=== PATIENT | female | born 1975 | race Caucasian/White ===

== ENCOUNTER → 2020-02-04 11:42 | Outpatient (BNVA) | payer OTHER, MEDICARE, SELFPAY | PROVIDERS: Visit Provider Surgery | DX: Z76.89 Persons encountering health services in other specified circumstances (principal) ==

== ENCOUNTER 2020-02-16 07:59 | Outpatient (REF) | payer OTHER, SELFPAY ==
[2020-02-16 08:03] VITALS: BP 138/78; PULSE 82; RESP 16; TEMP 37.1; O2SAT 98
[2020-02-16 08:04] VITALS: BMI 42.2
[2020-02-16 08:47] VITALS: BP 143/88; PULSE 82; RESP 16; O2SAT 99
--- NOTE | 2020-02-16 08:52 | PM.OP ---
Brief Operative Note Date of Service: 02/16/20 Pre-op diagnosis: Pilar cysts x 4 Post-op diagnosis: same Procedure: Excision of pilar cysts x 4 Implants: none Surgeon: Farrukh Faith MD Anesthesia: local Estimated blood loss (mL): 1 Pathology: other (pilar cyst x 4) Condition: stable Disposition: other (home)
--- NOTE | 2020-02-16 08:53 | W.PM.OPN ---
Operative Note Operative Note Date of Service: 02/16/20 Narrative: Preoperative diagnosis: Pilar cyst times for Postoperative diagnosis: Same Procedure: Excision of Pilar cysts x4 Anesthesia: Local Surgeon: Farrukh Faith MD Director Construction Services: None Indications for procedure this is a 44-year-old female patient presenting with 4 Pilar cysts to located on the left parietal scalp in 2 located in the posterior /occipital scalp. All cyst measured approximately 1.5 cm in diameter. Operative findings patient was found to have for Pilar cyst as noted above each measuring 1.5 cm in diameter. Specimen: Pilar cyst x4 Complications: None Estimated blood loss: 1 mL Procedure details patient was placed in a prone position. After assuring informed consent and the site of surgery being confirmed by the patient patient's scalp was prepped with Betadine over each of the cysts. Local consisting of 1% lidocaine with epinephrine was then infiltrated over each of the cyst. Starting with the left 2 lesions incision was made directly over the cyst measuring approximately 1.5 cm. Incision was carried down through subcutaneous tissue up to the cyst wall. Blunt dissection with a mosquito hemostat was then used to dissect the cyst free from the surrounding subcutaneous tissue. Cyst was removed and sent to pathology for further examination. Skin was then closed using 2 interrupted 3-0 Prolene sutures. Bacitracin was applied. Attention was then directed to the posterior left parietal lesion. Again local was infiltrated over the cyst and incision made directly over the cyst. Blunt dissection was then used to dissect the lesion and the lesion was sent to pathology. The same procedure was used for the next 2 in the occipital region. All incisions were then closed using interrupted 3 O Prolene sutures. Bacitracin was applied to all 4 incisions. The patient tolerated the procedure well. She was discharged to home in stable condition.
== END 2020-02-16 08:00 | disposition home or self-care (01) ==
LOC: HO.MS 07:59
PROVIDERS: PCP Internal Medicine; Visit Provider Surgery
PROC: (CPT 11422; principal; 2020-02-16 08:00)
DX: L72.11 Pilar cyst (principal)
CPT/HCPCS: 11422 ×4; 88304

== ENCOUNTER → 2020-02-25 09:58 | Outpatient (BNVA) | payer OTHER, SELFPAY | PROVIDERS: PCP Nurse Practitioner Family; Visit Provider Surgery | DX: Z76.89 Persons encountering health services in other specified circumstances (principal) ==

== ENCOUNTER 2023-04-14 09:43 | Inpatient (IN) | payer OTHER, SELFPAY ==
[2023-04-14] VITALS (7 sets, daily range): BP systolic 108–160; BP diastolic 63–100; PULSE 91–126; RESP 14–26; TEMP 36.5–38.3; O2SAT 95–100; BMI 46.9; BMI 47.0
--- NOTE | ~2023-04-14 | CT_ITS ---
EXAMINATION: CT ABDOMEN AND PELVIS WITH CONTRAST CLINICAL INFORMATION: Right-sided abdominal pain COMPARISON: None available. TECHNIQUE: Multidetector volumetric images were obtained from the superior aspect of the liver through the pubic symphysis following administration 100 mL of Omnipaque 350 intravenous contrast. Sagittal and coronal reformatted images were obtained on the technologist's workstation. This CT examination was performed using dose optimization techniques as appropriate, variously including the following: *Automated exposure control *Adjustment of mA and/or kV according to patient size (this includes techniques or standardized protocols for targeted exams where dose is matched to indication/reason for exam; i.e. extremities or head) *Use of iterative reconstruction technique DLP: 985 mGy-cm FINDINGS: Visualized lung bases demonstrate mild dependent atelectasis. The liver is normal in size but demonstrates diffusely decreased attenuation. The gallbladder is normal in appearance. The pancreas, spleen and adrenal glands are unremarkable. Symmetrically enhancing kidneys. There is no hydronephrosis of either kidney. Normal caliber loops of small and large bowel. Normal appendix. Moderate sized umbilical hernia containing fat and omentum. A fascial defect measures approximately 2.2 x 2.6 cm in transverse by craniocaudal dimension. The hernia sac measures approximately 4.6 x 5.6 x 5.6 cm. Normal caliber abdominal aorta. No retroperitoneal lymphadenopathy. The bladder is normal in appearance. Suspected approximately 5 cm somewhat pedunculated fibroid off the uterine fundus. Small bilateral adnexal cysts. No gross free pelvic fluid. No inguinal lymphadenopathy. No acute osseous abnormality. CT/CT abdomen pelvis w IV con IMPRESSION: 1. Moderate sized umbilical hernia containing fat and omentum. 2. Diffusely decreased liver attenuation suggesting hepatic steatosis. Correlation with liver enzymes recommended. 3. Suspected approximately 5 cm somewhat pedunculated fibroid off the uterine fundus. Fleischner guidelines were followed.
--- NOTE | ~2023-04-14 | US_ITS ---
EXAMINATION: US ABDOMEN LIMITED CLINICAL INFORMATION: Pain. COMPARISON: CT scan same day earlier TECHNIQUE: Real-time imaging of the right upper quadrant abdominal viscera. FINDINGS: PANCREAS: The visualized portion of the pancreas head and body are normal, portion of the pancreatic body and tail, not visualized are obscured by bowel gas. LIVER: Increased echogenicity of the liver parenchyma, this can be seen in the setting of hepatic steatosis or liver parenchymal disease. Focal hypoechoic area probably focal fat sparing No intra or extrahepatic biliary dilatation. GALLBLADDER: Technologist reported tenderness pressing on the gallbladder. There are no other signs to suggest cholecystitis. The gallbladder is physiologically distended without evidence of stones, sludge, polyps, wall thickening or pericholecystic fluid. COMMON BILE DUCT: Normal in caliber measuring 0.3 cm in diameter. RIGHT KIDNEY: Normal. No hydronephrosis. No renal calculi or focal parenchymal lesions. The kidney measures 11.1 cm in maximum dimension. FREE FLUID: None. US/US abdomen limited IMPRESSION: 1. Technologist reported tenderness pressing on the gallbladder however there are no other signs to suggest cholecystitis. It was also reported that the Patient is tender all over the abdomen. 2. Increased echogenicity of the liver parenchyma, this can be seen in the setting of hepatic steatosis or liver parenchymal disease. 3. Hypoechoic area in the liver probably focal fat sparing.
--- NOTE | 2023-04-14 10:15 | ED_ITS ---
HPI - Abdominal Pain General Chief Complaint: Abdominal Pain Stated Complaint: back and abd pain Time Seen by Provider: 04/14/23 09:48 Source: patient Mode of arrival: ambulatory History of Present Illness HPI narrative: 47-year-old female without significant past medical history presents with severe worsening of right-sided abdominal pain, she states that for the past couple of weeks she has had pain that has occurred with each time that she is eaten and then since yesterday began becoming much worse with associated nausea, vomiting, chills and has a known umbilical hernia but denies any urinary symptoms. Related Data Home Medications Medication Instructions Recorded Confirmed ibuprofen 600 mg tablet 600 mg PO Q6H PRN 02/26/20 Allergies Allergy/AdvReac Type Severity Reaction Status Date / Time acetaminophen [Vicodin] Allergy Unknown nausea and Verified 04/14/23 10:23 vomiting hydrocodone [Vicodin] Allergy Unknown nausea and Verified 04/14/23 10:23 vomiting morphine [Morphine] Allergy Unknown NAUSEA, Verified 04/14/23 10:23 vomiting Environmental Allergy Unknown UNKNOWN Uncoded 04/14/23 10:23 From Vicodin Allergy Unknown NAUSEA Uncoded 04/14/23 10:23 Seasonal Allergies Allergy Unknown Unknown Uncoded 04/14/23 10:23 Review of Systems Review of Systems Pertinent positives and negatives as stated in HPI PMFSH Past Medical History Source: nursing notes reviewed Onset Date is defined in the Problem List Problems that require an onset date and time if occurred within 24 hrs of arrival to the ED Aortic Dissection and Rupture; Neurologic impairment; Cardiopulmonary Arrest; Endotracheal Intubation; Insertion or Replacement of Mechanical Circulatory Assist Device Medical History Obese General medical examination Scalp cyst Surgical History History of removal of cyst (~04/12/15) History of surgery on arm History of surgical removal of ganglion cyst Family History Family History Mother High blood pressure Stroke Father Sarcoid Cirrhosis of liver Social History Social History Smoked in Last 30 Days: No Use of substances other than those prescribed or required for medical reasons: No Advance Directives: No Advance Directives Information Provided: No Physical Exam ED Vital Signs: Vital Signs - 24 hr 04/14/23 10:00 04/14/23 11:25 04/14/23 11:35 Temperature 97.9 F Pulse Rate 126 H 99 98 Respiratory Rate 22 H 26 H 16 Blood Pressure 160/100 H 123/71 123/63 Pulse Oximetry 98 100 98 Oxygen Delivery Method Room Air Room Air Room Air 04/14/23 12:49 Temperature Pulse Rate 100 Respiratory Rate 14 Blood Pressure 116/68 Pulse Oximetry 97 Oxygen Delivery Method Room Air BMI result Body Mass Index 46.9 VITAL SIGNS: Reviewed. GENERAL: Elevated BMI, Well developed, well nourished, in no acute distress. HEAD: Normocephalic/atraumatic EYES: PERRLA, EOMI EARS: Ext canals without abnormality NOSE: Nares patent bilateral OROPHARYNX: no oral lesions noted, posterior pharynx clear NECK: Supple, no adenopathy LUNGS: Normal breath sounds. No adventitious sounds or accessory muscle use. SpO2<98> CARDIOVASCULAR: Tachycardic rate and rhythm without noted murmurs ABDOMEN: Soft, right upper quadrant/right lower quadrant pain, small fat containing ventral hernia with ability to somewhat reduce but there is no significant pain on manipulation, non-distended with bowel sounds. MUSCULOSKELETAL: No tenderness, deformities, or effusions noted on gross inspection. EXTREMITIES: No cyanosis, clubbing or edema. SKIN: Inspection of the skin reveals no rashes NEUROLOGIC: Alert and oriented x 4. Strength and sensation to light touch were grossly intact x 4. Medical Decision Making Medical Decision Making [facility] Narrative: 1010: 47-year-old female with history and clinical presentation, DDX: Cholecystitis, choledocholithiasis, pancreatitis/appendicitis felt to be less likely, doubt renal colic. Patient to receive IV fluids, antibiotics, pain medication. I reviewed all investigations and hematologic indices significant for leukocytosis and left shift without anemia or thrombocytopenia. Chemistry indices do not demonstrate an RACHEAL and there is no electrolyte derangement, there is a noted slight bump in total bilirubin but otherwise transaminases and alkaline phosphatase are within normal range, beta hCG is undetectable. Urinalysis does have the presence of blood/RBCs and WBCs but no observed bacteria and patient states that she recently completed her menstrual cycle. Abdominal CT scan identifies moderately sized umbilical hernia containing fat and omentum but no reports of evidence to suggest strangulation and no evidence of obstruction/renal colic/appendicitis or acute gallbladder pathology. I did proceed with right upper quadrant ultrasound that did not demonstrate any pericholecystic fluids/wall thickening or presence of stones to otherwise suggest cholecystitis. 1507: On re-evaluation I spoke with the patient who still describes persistent pain in the right upper quadrant radiating into the back with persistent nausea. I reached out to discuss case with General surgery, Dr. Soliz, there is the outside possibility that patient may be experiencing a pyelonephritis although there is no evidence of bacteria within the urine sample and she denied any dysuria. Evaluated at bedside by Dr. Soliz and will proceed with admission, patient is aware of the plan. Differential Diagnosis Differential Diagnoses: The differential diagnosis associated with the presentation includes Please see the discussion above Admission/Observation Consideration of admission/observation: Escalation of care including admission/observation considered Please see the discussion above Consult Healthcare Provider Management of the patient was discussed with: Visual Display Manager Please see the discussion above Lab Data MDM Lab Attestation statement: I reviewed the patient's lab results. Please see the discussion above 04/14/23 10:25 04/14/23 10:25 Labs: Lab Results 04/14/23 04/14/23 Range/Units 10:25 12:12 WBC 12.3 H (4.8-10.8) X10*3/uL RBC 4.69 (4.20-5.50) X10*6/uL Hgb 12.4 (12.0-16.0) g/dl Hct 40.4 (37.0-47.0) % MCV 86.1 (80.0-98.0) fL MCH 26.4 L (27.0-33.0) pg MCHC 30.7 L (31.0-35.0) g/dl RDW 14.6 (11.0-16.0) % Plt Count 238 (160-400) X10*3/uL MPV 10.1 (9.4-12.3) fL Immature Gran % (Auto) 0.6 H (0.0-0.4) % Neut % (Auto) 87.5 H (45-73) % Lymph % (Auto) 7.7 L (20-40) % Edgar % (Auto) 3.8 (2-11) % Eos % (Auto) 0.2 (0-4) % Baso % (Auto) 0.2 (0-2) % Lymph # (Auto) 1.0 L (1.2-4.9) X10*3/uL Edgar # (Auto) 0.5 (0.1-1.2) X10*3/uL Eos # (Auto) 0.0 (0.0-0.4) X10*3/uL Baso # (Auto) 0.0 (0.0-0.2) X10*3/uL Abs Immat Gran (auto) 0.07 H (0.00-0.03) X10*3/uL Absolute Neuts (auto) 10.8 H (2.0-8.3) x10*3/uL Absolute Nucleated RBC 0.000 (0.0-0.012) X10*3/uL Nucleated RBC % (auto) 0.0 (0.0-0.2) /100WBC Sodium 138 (135-145) mmol/L Potassium 3.8 (3.3-5.1) mmol/L Chloride 107 (96-108) mmol/L Carbon Dioxide 19 L (22-29) mmol/L Anion Gap 16 (12-20) BUN 10 (9-16) mg/dL Creatinine 0.74 (0.5-1.4) mg/dL Estim Creat Clear Calc 111.6 Estimated GFR > 60 Random Glucose 135 H (60-115) mg/dL Lactic Acid 1.8 (0.5-2.0) mmol/L Calcium 8.9 (8.4-10.2) mg/dL Total Bilirubin 1.1 H (0.0-1.0) mg/dL AST 18 (5-31) U/L ALT 23 (0-31) U/L Alkaline Phosphatase 86 (39-117) U/L Total Protein 6.9 (6.5-8.0) g/dL Albumin 4.0 (3.5-5.0) g/dL Beta HCG, Quant < 2 mIU/mL Urine Color Yellow Urine Appearance Clear Urine pH 6.0 (5.0-9.0) Ur Specific [place] >= 1.030 H (1.005-1.025) Urine Protein Negative (Neg-Trace) mg/dL Urine Glucose (UA) Negative (Negative) mg/dL Urine Ketones Negative (Negative) mg/dL Urine Blood Moderate (2+) H (Negative) Urine Nitrite Negative (Negative) Ur Leukocyte Esterase Negative (Negative) Urine RBC >20 H (0-2) /HPF Urine WBC 6-10 H (0-5) /HPF Ur Squamous Epith Cells 0-2 (0-2) /HPF Urine Bacteria None Seen (None Seen) Hyaline Casts 0-2 (0-2) /LPF Radiology Impression Discussion of test interpretation with radiology: I have reviewed the radiologist's reading. Radiologist Impression: Please see the discussion above External Record Review External record reviewed: Outpatient record and Prior outpatient labs Medications Administered Discontinued Medications Generic Name Dose Route Start Last Admin Trade Name Freq PRN Reason Stop Dose Admin Hydromorphone HCl 0.25 mg 04/14/23 12:27 04/14/23 12:50 Hydromorphone Hcl 0.5 Mg/0.5 Ml Syringe IVPUSH 04/14/23 12:28 0.25 mg ONCE ONE Administration Protocol Sodium Chloride 1,000 mls @ 999 mls/hr 04/14/23 10:15 04/14/23 11:26 Ns IV 04/14/23 11:15 Infused .Q1H1M LISSETT Infusion Ceftriaxone Sodium 1 gm/ 50 mls @ 100 mls/hr 04/14/23 10:46 04/14/23 12:11 Sodium Chloride IV 04/14/23 11:15 Infused ONCE ONE Infusion Metronidazole 500 mg in 100 mls @ 100 mls/hr 04/14/23 10:46 04/14/23 13:16 Flagyl IV 04/14/23 11:45 Infused ONCE ONE Infusion Iohexol 100 ml 04/14/23 11:10 04/14/23 11:11 Iohexol 350 Mg/Ml 100 Ml Infus..Btl IV 04/14/23 11:11 100 ml ONCE ONE Administration Ketorolac Tromethamine 15 mg 04/14/23 10:15 04/14/23 10:23 Ketorolac Tromethamine 30 Mg/Ml Vial IVPUSH 04/14/23 10:16 15 mg ONCE ONE Administration Ondansetron HCl 4 mg 04/14/23 10:17 04/14/23 10:23 Ondansetron Hcl 4 Mg/2 Ml Vial IVPUSH 04/14/23 10:18 4 mg ONCE ONE Administration Critical Care Time Critical Care Time Critical Care Time: Yes Total Critical Care Time: 60 Attestation: I personally attest to this time spent taking care of the patient. Discharge Plan Discharge Clinical Impression: Abdominal pain Patient Disposition: Admitted As Inpatient
[2023-04-14] MEDS: ondansetron HCL 4 MG/2 ML VIAL IVPUSH ×2 (10:23→21:48)
[2023-04-14] MEDS: Ketorolac Tromethamine 30 MG/ML VIAL 15 MG IVPUSH (10:23)
[2023-04-14] MEDS: 0.9 % Sodium Chloride 1,000 ML 999 ML IV (10:24)
[2023-04-14 10:31] LABS: MANUAL DIFF FLAG NO
[2023-04-14 10:40] LABS: Basophils Percent Auto 0.2 % (0-2); Eosinophils Percent Auto 0.2 % (0-4); Hematocrit 40.4 % (37.0-47.0); Hemoglobin 12.4 g/dl (12.0-16.0); Imm Gran Abs Auto 0.07 X10*3/uL (0.00-0.03); Imm Gran Pct Auto 0.6 % (0.0-0.4); Lymphocytes Percent Auto 7.7 % (20-40); Mean Corpuscular HGB Conc 30.7 g/dl (31.0-35.0); Mean Corpuscular Hemoglobin 26.4 pg (27.0-33.0); Mean Corpuscular Volume 86.1 fL (80.0-98.0); Mean Platelet Volume 10.1 fL (9.4-12.3); Monocytes Absolute Auto 0.5 X10*3/uL (0.1-1.2); Monocytes Percent Auto 3.8 % (2-11); Neutrophils Absolute Auto 10.8 x10*3/uL (2.0-8.3); Neutrophils Percent Auto 87.5 % (45-73); Platelet Count 238 X10*3/uL (160-400); Red Blood Count 4.69 X10*6/uL (4.20-5.50); Red Cell Distribution Width 14.6 % (11.0-16.0); White Blood Count 12.3 X10*3/uL (4.8-10.8)
[2023-04-14 10:43] LABS: Lactic Acid 1.8 mmol/L (0.5-2.0)
[2023-04-14 10:48] LABS: Alanine Aminotransferase 23 U/L (0-31); Alkaline Phosphatase 86 U/L (39-117); Anion Gap 16 (12-20); Aspartate Amino Transferase 18 U/L (5-31); Bilirubin Total 1.1 mg/dL (0.0-1.0); Blood Urea Nitrogen 10 mg/dL (9-16); Calcium 8.9 mg/dL (8.4-10.2); Carbon Dioxide 19 mmol/L (22-29); Chloride 107 mmol/L (96-108); Creatinine Clr Calc Pharmacy 111.6; Estimated Glomerular Filt Rate > 60; Glucose Random 135 mg/dL (60-115); Potassium 3.8 mmol/L (3.3-5.1); Sodium 138 mmol/L (135-145); Total Protein 6.9 g/dL (6.5-8.0)
[2023-04-14] MEDS: iohexoL 350 MG/ML 100 ML INFUS..BTL IV (11:11)
[2023-04-14] MEDS: cefTRIAXone sodium 1 GM in 0.9 % Sodium Chloride 50 ML IV (11:20)
[2023-04-14 11:27] LABS: HCG Quantitative < 2 mIU/mL
--- NOTE | 2023-04-14 11:28 | PC.NURSE ---
PT IS TOUGH STICK, TECH UNABLE TO OBTAIN 2ND SET BLOOD CULTURES. REATTEMPT BY THIS RN, CAUSING DELAY IN ADMIN OF ABX TIMING WITH SEPSIS PROTOCOL
[2023-04-14] MEDS: metroNIDAZOLE/NS 500 MG/100 ML PIGGYBACK 100 MG IV (12:10)
[2023-04-14 12:22] LABS: Appearance Urine Clear; Color Urine Yellow; Glucose Urine UA Negative (Negative); Leukocyte Esterase Urine Negative (Negative); Nitrite Urine Negative (Negative); Specific Gravity - Urine >= 1.030 (1.005-1.025); UMIC TRIGGER UACC YES; Urine Blood Moderate (2+) (Negative); Urine Ketones Negative (Negative); Urine Protein Negative (Neg-Trace)
[2023-04-14 12:24] LABS: Bacteria Urine None Seen (None Seen); Hyaline Casts Urine 0-2 /LPF (0-2); RBC Urine >20 /HPF (0-2); Squamous Epithelial Cell Urine 0-2 /HPF (0-2); UACC Culture Trigger YES
[2023-04-14] MEDS: HYDROmorphone HCl 0.5 MG/0.5 ML SYRINGE 0.25 MG IVPUSH (12:50)
--- NOTE | 2023-04-14 15:34 | PM.HPGS ---
History of Present Illness History of Present Illness Date of Service: 04/17/23 Chief complaint: right flank pain Narrative: Na Perez is a 47 year old female with morbid obesity, here in the ED for right sided abdominal pain. She says that for the past 2 weeks, she had been having periodic abdominal pain vague, usually after meals. However, last night. She says the pain was more severe, and constant. She says this was all over the right side of her abdomen, the right flank and the right hip and upper buttock area. She says she had some vomitting earlier as well. She does have a chronic umbilical for many years. She says this does not seem to be what is hurting. She denies diarrhea or other GI complaints. Review of Systems Constitutional: Constitutional: Denies chills and Denies fever(s) Cardiovascular: Cardiovascular: Denies chest pain, Denies dyspnea and Denies dyspnea on exertion Respiratory: Respiratory: Denies cough, Denies dyspnea and Denies dyspnea on exertion Gastrointestinal: Gastrointestinal: Denies hematochezia and Denies change in bowel habits Genitourinary: Genitourinary: Denies hematuria Musculoskeletal: Musculoskeletal: Denies back pain and Denies limited range of motion Neurologic: Denies focal weakness and Denies convulsions Psychiatric: Psychiatric: Denies depression and Denies mood swings PMFSH Past Medical History Medical History Right sided abdominal pain Obese General medical examination Scalp cyst Family History Family History Mother High blood pressure Stroke Father Sarcoid Cirrhosis of liver Surgical History Surgical History History of removal of cyst (~04/12/15) History of surgery on arm History of surgical removal of ganglion cyst Social History Social History Household Members: Family Housing: House Do you presently have visiting nurse or other home services: No Patient Tobacco Use Status: Never used Tobacco service: No Meds Allergies Allergy/AdvReac Type Severity Reaction Status Date / Time acetaminophen [Vicodin] Allergy Unknown nausea and Verified 04/14/23 10:23 vomiting hydrocodone [Vicodin] Allergy Unknown nausea and Verified 04/14/23 10:23 vomiting morphine [Morphine] Allergy Unknown NAUSEA, Verified 04/14/23 10:23 vomiting Environmental Allergy Unknown UNKNOWN Uncoded 04/14/23 10:23 From Vicodin Allergy Unknown NAUSEA Uncoded 04/14/23 10:23 Seasonal Allergies Allergy Unknown Unknown Uncoded 04/14/23 10:23 Active Medications: Current Medications Heparin Sodium (Porcine) (Heparin Sodium,Porcine 5,000 Unit/Ml Vial) 5,000 unit SUBCUT Q8H LISSETT Dextrose/Sodium Chloride (D5ns) 1,000 mls @ 100 mls/hr IVCONT .Q10H LISSETT Morphine Sulfate (Morphine Sulfate 4 Mg/Ml Cartridge) 3 mg IVPUSH Q4H PRN; Protocol PRN Reason: Pain, Severe (Pain Scale 7-10) Ondansetron HCl (Ondansetron Hcl 4 Mg/2 Ml Vial) 4 mg IVPUSH Q8H PRN PRN Reason: Nausea and Vomiting Sodium Chloride (0.9 % Sodium Chloride Flush 3 Ml Syringe) 3 ml IVFLUSH QSHIFT LISSETT Physical Exam Vital Signs: Vital Signs: Last Vital Signs Temp 97.9 F 04/14/23 10:00 Pulse 100 04/14/23 12:49 Resp 14 04/14/23 12:49 BP 116/68 04/14/23 12:49 Pulse Ox 97 04/14/23 12:49 O2 Del Method Room Air 04/14/23 12:49 BMI result Body Mass Index 46.9 Const: Other: morbildy obese General: no acute distress (does appear a little uncomfortable) Resp: Effort & Inspection: normal respiratory effort Cardio: Rate: regular rate GI: Other: oebse soft, umbilical hernia not tender, partial reducible, some tenderness diffusely right flank, all the way to the hip and upper buttock Results Results Labs: Short CBC 04/14/23 Range/Units 10:25 WBC 12.3 H (4.8-10.8) X10*3/uL Hgb 12.4 (12.0-16.0) g/dl Hct 40.4 (37.0-47.0) % Plt Count 238 (160-400) X10*3/uL BMP 04/14/23 10:25 Sodium 138 Potassium 3.8 Chloride 107 Carbon Dioxide 19 L BUN 10 Creatinine 0.74 Calcium 8.9 Liver Function 04/14/23 Range/Units 10:25 Total Bilirubin 1.1 H (0.0-1.0) mg/dL AST 18 (5-31) U/L ALT 23 (0-31) U/L Alkaline Phosphatase 86 (39-117) U/L Albumin 4.0 (3.5-5.0) g/dL Urine 04/14/23 Range/Units 12:12 Urine Color Yellow Urine Appearance Clear Urine pH 6.0 (5.0-9.0) Ur Specific [place] >= 1.030 H (1.005-1.025) Urine Protein Negative (Neg-Trace) mg/dL Urine Glucose (UA) Negative (Negative) mg/dL Abdomen CT scan report/results: report reviewed and image reviewed CT scan - pelvis: report reviewed and image reviewed Abdominal ultrasound report/results: report reviewed and image reviewed Assessment and Plan (1) Right sided abdominal pain: Status: Acute She has had this right sided flank and abdominal pain. I have reviewed her imaging studies. There are no gallstones, and the GB does not appear inflamed ot distended. There are noinflammatory changes or any pathology in the right colon or appendix. Sha has a moderate sized ovarian cyst on the right. Her UA does not suggest urinalysis. There are some RBC's but she states she had been on the tailend of her menstrual period 2 days ago. I am uncertain as to the etiology of her pain. Differentials include gastroenteritis, early appendicitis, biiary dysfunction, but this is all uncertain. In view of this uncertainty as well as her pain, I will admit her, put her on bowel rest. I will start her on IV Zosyn for a presumed intraabdominal inflammation. She will be hydrated and will repeat her labs in the morning. She is comfortable with the plan. Interestingly, she has tenderness along the right back area all the way to the upper buttock. She had ruled in for sepsis earlier but she has had no fever here and her HR is in the 80's currently. She is not toxic looking. Quality Stroke Does the patient have a stroke diagnosis?: No VTE Prior VTE?: No VTE Risk Level:: Medical - moderate - high VTE Device Contraindication: N/A - Device Ordered VTE Drug Contraindication: N/A - Med Ordered Procedures Date of Service Date of Service: 04/17/23
--- NOTE | 2023-04-14 15:51 | PHA.MEDREC ---
Pharmacy Consult ? Medication Reconciliation Pharmacy has completed the medication reconciliation.
[2023-04-14] MEDS: Dextrose 5 % and 0.9 % NaCl 1,000 ML 100 ML IVCONT (16:33)
[2023-04-14] MEDS: Heparin Sodium,Porcine 5,000 UNIT/ML VIAL 5000 UNIT SUBCUT (16:33)
[2023-04-14] MEDS: Piperacillin Sodium/Tazobactam 3.375 GM in 0.9 % Sodium Chloride 50 ML IV ×2 (16:34→21:15)
[2023-04-14] MEDS: Ibuprofen 200 MG TABLET PO (21:31)
[2023-04-14] MEDS: HYDROmorphone HCl 0.5 MG/0.5 ML SYRINGE IVPUSH (21:32)
[2023-04-15] VITALS: BP 105/61; PULSE 76; RESP 20; TEMP 36.1; O2SAT 96
[2023-04-15] MEDS: Heparin Sodium,Porcine 5,000 UNIT/ML VIAL 5000 UNIT SUBCUT ×4 (00:06→23:13)
[2023-04-15] MEDS: Dextrose 5 % and 0.9 % NaCl 1,000 ML 100 ML IVCONT ×2 (03:22→14:06)
[2023-04-15 03:59] VITALS: BP 120/75; PULSE 66; RESP 20; TEMP 36.1; O2SAT 96
[2023-04-15] MEDS: Piperacillin Sodium/Tazobactam 3.375 GM in 0.9 % Sodium Chloride 50 ML IV ×4 (05:36→21:54)
[2023-04-15] MEDS: HYDROmorphone HCl 0.5 MG/0.5 ML SYRINGE IVPUSH (05:56)
[2023-04-15 06:17] LABS: Hemoglobin 10.3 g/dl (12.0-16.0); Mean Corpuscular HGB Conc 32.2 g/dl (31.0-35.0); Mean Corpuscular Hemoglobin 27.2 pg (27.0-33.0); Mean Corpuscular Volume 84.7 fL (80.0-98.0); Mean Platelet Volume 10.8 fL (9.4-12.3); Platelet Count 220 X10*3/uL (160-400); Red Blood Count 3.78 X10*6/uL (4.20-5.50); Red Cell Distribution Width 14.6 % (11.0-16.0); White Blood Count 4.4 X10*3/uL (4.8-10.8)
[2023-04-15] MEDS: ondansetron HCL 4 MG/2 ML VIAL IVPUSH ×2 (06:30→17:32)
[2023-04-15] MEDS: Ibuprofen 200 MG TABLET PO ×2 (06:30→14:08)
[2023-04-15 06:40] LABS: Alanine Aminotransferase 19 U/L (0-31); Albumin Level 3.3 g/dL (3.5-5.0); Alkaline Phosphatase 66 U/L (39-117); Anion Gap 10 (12-20); Aspartate Amino Transferase 17 U/L (5-31); Bilirubin Total 1.1 mg/dL (0.0-1.0); Blood Urea Nitrogen 8 mg/dL (9-16); Calcium 8.1 mg/dL (8.4-10.2); Carbon Dioxide 22 mmol/L (22-29); Chloride 111 mmol/L (96-108); Creatinine Clr Calc Pharmacy 107.4; Estimated Glomerular Filt Rate > 60; Glucose Random 136 mg/dL (60-115); Potassium 3.3 mmol/L (3.3-5.1); Sodium 140 mmol/L (135-145); Total Protein 5.7 g/dL (6.5-8.0)
[2023-04-15 07:50] VITALS: BP 134/80; PULSE 76; RESP 18; TEMP 36.2; O2SAT 97
--- NOTE | 2023-04-15 10:22 | PM.PNGS ---
Subjective Subjective Date of Service: 04/15/23 Interval history: feels much better no further vomitting although she says she gets a little nauseous still still has some right sided abdl pain, back pain but much improved had fever of 101F at 10 pm - none since Physical Exam Vital Signs: Vital Signs: Last Vital Signs Temp 97.2 F 04/15/23 07:50 Pulse 76 04/15/23 07:50 Resp 18 04/15/23 07:50 BP 134/80 04/15/23 07:50 Pulse Ox 97 04/15/23 07:50 O2 Del Method Room Air 04/15/23 07:50 BMI result Body Mass Index 47.0 Const: General: comfortable and no acute distress Resp: Effort & Inspection: normal respiratory effort Cardio: Rate: regular rate GI: Other: large pannus Palpation (GI): Soft to palpation, not firm, Tenderness to palpation present (GI) (mild tenderness entire right side/flank) and no guarding Objective Data Active Medications Heparin Sodium (Porcine) (Heparin Sodium,Porcine 5,000 Unit/Ml Vial) 5,000 unit SUBCUT Q8H [facility] Last Admin: 04/15/23 06:30 Dose: 5,000 unit Documented By: GEOFF Hydromorphone HCl (Hydromorphone Hcl 0.5 Mg/0.5 Ml Syringe) 0.5 mg IVPUSH Q3H PRN; Protocol PRN Reason: Pain, Severe (Pain Scale 7-10) Last Admin: 04/15/23 05:56 Dose: 0.5 mg Documented By: GEOFF Dextrose/Sodium Chloride (D5ns) 1,000 mls @ 100 mls/hr IVCONT .Q10H [facility] Last Admin: 04/15/23 03:22 Dose: 100 mls/hr Documented By: GEOFF Piperacillin Sod/Tazobactam (Sod 3.375 gm/ Sodium Chloride) 50 mls @ 100 mls/hr IV Q6H [facility] Last Infusion: 04/15/23 09:51 Dose: Infused Documented By: CORAZON Ibuprofen (Ibuprofen 200 Mg Tablet) 200 mg PO Q6H PRN PRN Reason: Headache Last Admin: 04/15/23 06:30 Dose: 200 mg Documented By: GEOFF Ondansetron HCl (Ondansetron Hcl 4 Mg/2 Ml Vial) 4 mg IVPUSH Q8H PRN PRN Reason: Nausea and Vomiting Last Admin: 04/15/23 06:30 Dose: 4 mg Documented By: GEOFF Sodium Chloride (0.9 % Sodium Chloride Flush 3 Ml Syringe) [facility] Last Admin: 04/15/23 09:58 Dose: Not Given Documented By: CORAZON Non-Admin Reason: IV Running Labs 04/15/23 05:40 04/15/23 05:40 Labs: Laboratory Results - last 24 hr 04/14/23 04/14/23 04/15/23 10:25 12:12 05:40 MCV 86.1 84.7 MCH 26.4 L 27.2 MCHC 30.7 L 32.2 RDW 14.6 14.6 Plt Count 238 220 MPV 10.1 10.8 Immature Gran % (Auto) 0.6 H Neut % (Auto) 87.5 H Lymph % (Auto) 7.7 L [place] % (Auto) 3.8 Eos % (Auto) 0.2 Baso % (Auto) 0.2 Lymph # (Auto) 1.0 L [place] # (Auto) 0.5 Eos # (Auto) 0.0 Baso # (Auto) 0.0 Abs Immat Gran (auto) 0.07 H Absolute Neuts (auto) 10.8 H Absolute Nucleated RBC 0.000 0.000 Nucleated RBC % (auto) 0.0 0.0 Anion Gap 16 10 L Estim Creat Clear Calc 111.6 107.4 Estimated GFR > 60 > 60 Random Glucose 135 H 136 H Lactic Acid 1.8 Calcium 8.9 8.1 L D Total Bilirubin 1.1 H 1.1 H AST 18 17 ALT 23 19 Alkaline Phosphatase 86 66 Total Protein 6.9 5.7 L Albumin 4.0 3.3 L Beta HCG, Quant < 2 Urine Color Yellow Urine Appearance Clear Urine pH 6.0 Ur Specific [place] >= 1.030 H Urine Protein Negative Urine Glucose (UA) Negative Urine Ketones Negative Urine Blood Moderate (2+) H Urine Nitrite Negative Ur Leukocyte Esterase Negative Urine RBC >20 H Urine WBC 6-10 H Ur Squamous Epith Cells 0-2 Urine Bacteria None Seen Hyaline Casts 0-2 Procedures Date of Service Date of Service: 01/21/24 Progress Note: A&P Assessment and plan (1) Right sided abdominal pain: Status: Acute Assessment and Plan: feels much better WBC down labs ok etiol uncertain - does not appear to be GB disease ?colitis, enteritis, urinary tract etiology overall much improved clear liquid diet exam benign continue IV Zosyn Time Spent With Patient Time: Total time managing care of this patient today ____ minutes. Quality Stroke Does the patient have a stroke diagnosis?: No VTE Prior VTE?: No VTE Risk Level:: Medical - moderate - high VTE Device Contraindication: N/A - Device Ordered VTE Drug Contraindication: N/A - Med Ordered
[2023-04-15 11:15] VITALS: BP 136/74; PULSE 72; RESP 20; TEMP 36.1; O2SAT 96
[2023-04-15 15:28] VITALS: BP 144/81; PULSE 80; RESP 20; TEMP 36; O2SAT 97
--- NOTE | 2023-04-15 16:12 | MHC.CM.PN ---
Addendum entered by Gabby Begum 04/16/23 08:58: HCP COMPLETED AND NOW ON FILE Original Note: PT REPORTS SHE LIVES AT HOME WITH HER PARENTS ARE IS INDEPENDENT WITH CARE SHE HAS NO DME AND NO SERVICES PT WILL COMPLETE A HCP NAMING HER MOTHER, GABRIELA, HER AGENT SHE DOES NOT HAVE A PCP BUT IS INTERESTED IN SEEING A PROVIDER ON CAMPUS TASK SENT TO CM OFFICE DC PLAN, HOME NO SERVICES CAR IS IN LOT
[2023-04-15] MEDS: 0.9 % Sodium Chloride Flush 3 ML SYRINGE IVFLUSH (17:32)
[2023-04-15 19:38] VITALS: BP 132/82; PULSE 83; RESP 18; TEMP 36.4; O2SAT 98
[2023-04-16] MEDS: Dextrose 5 % and 0.9 % NaCl 1,000 ML 100 ML IVCONT (01:38)
[2023-04-16] MEDS: 0.9 % Sodium Chloride Flush 3 ML SYRINGE IVFLUSH (01:38)
[2023-04-16 03:23] VITALS: BP 110/52; PULSE 81; RESP 18; TEMP 36.2; O2SAT 98
[2023-04-16] MEDS: Piperacillin Sodium/Tazobactam 3.375 GM in 0.9 % Sodium Chloride 50 ML IV ×2 (05:12→10:58)
[2023-04-16 07:09] VITALS: BP 134/74; PULSE 85; RESP 20; TEMP 36.1; O2SAT 98
[2023-04-16] MEDS: Heparin Sodium,Porcine 5,000 UNIT/ML VIAL 5000 UNIT SUBCUT (08:22)
--- NOTE | 2023-04-16 13:09 | PM.PNGS ---
Subjective Subjective Date of Service: 04/16/23 Interval history: feels much better tolerating clears has flatus no fever no abdl pain slept well Physical Exam Vital Signs: Vital Signs: Last Vital Signs Temp 96.9 F 04/16/23 07:09 Pulse 85 04/16/23 07:09 Resp 20 04/16/23 07:09 BP 134/74 04/16/23 07:09 Pulse Ox 98 04/16/23 07:09 O2 Del Method Room Air 04/16/23 07:09 BMI result Body Mass Index 47.0 Const: General: comfortable and no acute distress Resp: Effort & Inspection: normal respiratory effort Cardio: Rate: regular rate GI: Palpation (GI): Soft to palpation, not firm, nontender and no guarding Objective Data Active Medications Heparin Sodium (Porcine) (Heparin Sodium,Porcine 5,000 Unit/Ml Vial) 5,000 unit SUBCUT Q8H [facility] Last Admin: 04/16/23 08:22 Dose: 5,000 unit Documented By: ROSY Hydromorphone HCl (Hydromorphone Hcl 0.5 Mg/0.5 Ml Syringe) 0.5 mg IVPUSH Q3H PRN; Protocol PRN Reason: Pain, Severe (Pain Scale 7-10) Last Admin: 04/15/23 05:56 Dose: 0.5 mg Documented By: GEOFF Dextrose/Sodium Chloride (D5ns) 1,000 mls @ 80 mls/hr IVCONT .[id number] [facility] Last Infusion: 04/16/23 07:30 Dose: 0 mls/hr Documented By: ROSY Piperacillin Sod/Tazobactam (Sod 3.375 gm/ Sodium Chloride) 50 mls @ 100 mls/hr IV Q6H [facility] Last Admin: 04/16/23 10:58 Dose: 100 mls/hr Documented By: ROSY Ibuprofen (Ibuprofen 200 Mg Tablet) 200 mg PO Q6H PRN PRN Reason: Headache Last Admin: 04/15/23 14:08 Dose: 200 mg Documented By: CORAZON Ondansetron HCl (Ondansetron Hcl 4 Mg/2 Ml Vial) 4 mg IVPUSH Q8H PRN PRN Reason: Nausea and Vomiting Last Admin: 04/15/23 17:32 Dose: 4 mg Documented By: CORAZON Sodium Chloride (0.9 % Sodium Chloride Flush 3 Ml Syringe) 3 ml IVFLUSH QSHIFT [facility] Last Admin: 04/16/23 08:15 Dose: Not Given Documented By: ROSY Non-Admin Reason: IV Running Labs 04/15/23 05:40 04/15/23 05:40 Microbiology Microbiology Results: Microbiology 04/14/23 10:25 Blood Culture - Preliminary Blood - Venous No growth after 48 hours. 04/14/23 22:01 Blood Culture - Preliminary Blood - Venous No growth after 24 hours. 04/14/23 22:01 Blood Culture - Preliminary Blood - Venous No growth after 24 hours. 04/14/23 11:19 Blood Culture - Preliminary Blood - Venous No growth after 24 hours. 04/14/23 Unknown Urine Culture - Final Urine clean catch Strep agalactiae (Grp B) Procedures Date of Service Date of Service: 04/16/23 Progress Note: A&P Assessment and plan (1) Right sided abdominal pain: Status: Acute Assessment and Plan: resolved etiol? colitis? urinary tract etiol? diet as tolerated reeval later - poss home on PO abx looks well Time Spent With Patient Time: Total time managing care of this patient today ____ minutes. Quality Stroke Does the patient have a stroke diagnosis?: No VTE Prior VTE?: No VTE Risk Level:: Medical - moderate - high VTE Device Contraindication: N/A - Device Ordered VTE Drug Contraindication: N/A - Med Ordered
[2023-04-16 15:37] VITALS: BP 149/71; PULSE 78; RESP 18; TEMP 35.9; O2SAT 97
[2023-04-16] MEDS: Amoxicillin/Potassium Clav 875 MG TABLET PO (16:02)
--- NOTE | 2023-04-16 16:12 | MHC.CM.PN ---
Pt has been medically cleared for DC. She will go home via private transport, DC plan is self care.
--- NOTE | 2023-04-20 13:43 | PM.DS ---
DS: Providers Provider Date of Service: 04/16/23 Date of admission: 04/14/23 15:30 Primary care physician: Unknown Physician Attending physician on admission: Audi Soliz Attending physician on discharge: Audi Soliz DS: Diagnosis Discharge Diagnosis (1) Right sided abdominal pain: Status: Acute DS: Summary Hospital Course Hospital Course: HPI AT ADMISSION: Na Perez is a 47 year old female with morbid obesity, here in the ED for right sided abdominal pain. She says that for the past 2 weeks, she had been having periodic abdominal pain vague, usually after meals. However, last night. She says the pain was more severe, and constant. She says this was all over the right side of her abdomen, the right flank and the right hip and upper buttock area. She says she had some vomitting earlier as well. She does have a chronic umbilical for many years. She says this does not seem to be what is hurting. She denies diarrhea or other GI complaints. HOSPITAL COURSE: She was admitted to the surgical service for further treatment and observation. Etiology of her pain was uncertain. She had tenderness along the right back area all the way to the upper buttock. Her imaging did not show gallstones, and the GB did not appear inflamed or distended. There were also no inflammatory changes or any pathology in the right colon or appendix. Her UA does not suggest UTI. There are some RBC's but she states she had been on the tail end of her menstrual period 2 days ago. Due to the unclear etiology, she was admitted for bowel rest, IV hydration, on IV Zosyn for presumed intraabdominal inflammation. She improved with IV abx and her abdominal pain resolved. Her WBC count downtrended. She remained clinically appearing well. Her diet was advanced to clear liquids and then solids. She was tolerating a solid diet without any abdominal pain. She was discharged to home on 04/16/23 on a course of PO Augmentin. She is to follow up with Dr. Soliz in 2 weeks in the office. Status at Discharge Functional status at discharge: independent ambulation Overall status at discharge: patient is progressing back to baseline Time Attestation Discharge coordination time: Less than 30 minutes Quality: Safe Use of Opioids Does Pt have an Active Cancer Diagnosis on the Problem List?: No Quality: Stroke Does the patient have a stroke diagnosis?: No Physical Exam Vital Signs: Vital Signs: Last Vital Signs Temp 96.7 F L 04/16/23 15:37 Pulse 78 04/16/23 15:37 Resp 18 04/16/23 15:37 BP 149/71 H 04/16/23 15:37 Pulse Ox 97 04/16/23 15:37 O2 Del Method Room Air 04/16/23 15:37 BMI result Body Mass Index 47.0 Const: General: comfortable, no acute distress and alert Orientation/consciousness: patient oriented x3 GI: Palpation (GI): Soft to palpation, not firm and nontender Neuro: General: patient oriented x3 Discharge Plan Discharge Anticipated Discharge Date/Time: 04/16/23 15:29 Patient Disposition: Home, Self-Care Discharge Diagnosis: abdominal pain Referrals: Audi Soliz MD [Physician] - 2 Weeks Physician,Maribeth J [Primary Care Provider] - 1 Week Discharge Medications: New amoxicillin-pot clavulanate 875-125 mg tablet 1 tab PO BID Qty: 12 0RF amoxicillin-pot clavulanate 875-125 mg tablet 1 tab PO BID Qty: 12 0RF Discharge Orders: Discharge Order (Routine); Ordered 04/16/23 Ordered By: Audi Soliz Diet: Advance to usual diet Activity on Discharge: As tolerated Stand Alone Forms: Patient Portal Discharge page Care Plan Goals: abdominal pain, etiology uncertain Health Concerns: abdominal pain etiology uncertain obesity Plan of Treatment: oral antibiotics Assessment: doing well Discharge Date/Time: 04/16/23 16:16
== END 2023-04-16 16:16 | disposition home or self-care (01) | DRG 251 ==
LOC: HO.ED 15:38 → HO.EDOVER 15:59 → HO.IMC 16:50
PROVIDERS: Admitting Provider Surgery; Emergency Provider Student in an Organized Health Care Education/Training Program; Visit Provider Surgery
DX: R10.9 Unspecified abdominal pain (principal); E66.01 Morbid (severe) obesity due to excess calories; Z68.42 Body mass index [BMI] 45.0-49.9, adult
CPT/HCPCS: 36415; 74177; 76705; 80053; 81001; 83605; 84702; 85025; 85027; 87040; 87086; 87147; 99285; J0696; J1170; J1644; J1836; J1885; J2405; J2543; Q9967

== ENCOUNTER → 2023-04-14 15:30 | Outpatient (BNV) | payer OTHER, SELFPAY | PROVIDERS: Admitting Provider Surgery; Emergency Provider Student in an Organized Health Care Education/Training Program; Visit Provider Surgery | DX: R10.9 Unspecified abdominal pain (principal) | CPT/HCPCS: 99024; 99222; 99232; 99238 ==

== ENCOUNTER 2023-05-03 14:46 | Outpatient (AMB) | payer OTHER, SELFPAY ==
--- NOTE | 2023-05-03 14:48 | A.OFFVIS_ITS ---
Intake Vital Signs 05/03/23 14:56 Weight 244 lb Intake Visit Reasons: abdominal pain Intake Note: This patient presents for an assessment for abdominal pain. Pt c/o; reports umbilical bulge, reports postprandial pain 10-15 minutes after meals and right upper side pain, reports nausea, reports bulge is reducible, reports unbearable pain. Leather Skinner Required: No Accompanied by: Self / Same As Patient Allergies acetaminophen [Vicodin] Allergy (Unknown, Verified 05/03/23 14:59) nausea and vomiting hydrocodone [Vicodin] Allergy (Unknown, Verified 05/03/23 14:59) nausea and vomiting morphine [Morphine] Allergy (Unknown, Verified 05/03/23 14:59) NAUSEA, vomiting Environmental Allergy (Unknown, Uncoded 05/03/23 14:59) UNKNOWN From Vicodin Allergy (Unknown, Uncoded 05/03/23 14:59) NAUSEA Seasonal Allergies Allergy (Unknown, Uncoded 05/03/23 14:59) Unknown HPI abdominal pain HPI Details 47-year-old female here for follow-up. I had admitted her to the hospital for abdominal pain last April 14, 2023. At that time, she had vomiting, right-sided abdominal pain, with no suggestion of gallbladder disease on imaging studies. In view of her pain, I had admitted her. Differentials at that time included colitis, or enteritis. She was started on IV Zosyn because of leukocytosis. She improved significantly after the 1st hospital day. I gradually advance her diet and she tolerated this. Her WBC improved and she was eventually discharged on 04/16/2023. She is currently better although she does complain of occasional pain on the right side Her main complaint now is that her umbilical hernias been bothering him more. She describes significant discomfort with this as this seems to be ?coming out? more frequently with subsequent pain Her CAT scan does show a umbilical fascial defect about 2.6 cm in widest dimension containing fat. [facility] Medical History Umbilical hernia Right sided abdominal pain Obese General medical examination Scalp cyst Surgical History History of removal of cyst (~04/12/15) History of surgery on arm History of surgical removal of ganglion cyst Family History Mother High blood pressure Stroke Father Sarcoid Cirrhosis of liver Social History Household Members: Family Housing: House Do you presently have visiting nurse or other home services: No Patient Tobacco Use Status: Never used Tobacco service: No Review of Systems Const Denies chills and Denies fever(s) Card Denies chest pain, Denies dyspnea and Denies dyspnea on exertion Resp Denies cough, Denies dyspnea and Denies dyspnea on exertion GI Denies hematochezia and Denies change in bowel habits Denies hematuria Musc Denies back pain and Denies limited range of motion Neuro Denies focal weakness and Denies convulsions Psych Denies depression and Denies mood swings Physical Exam Const Other: Morbidly obese General: comfortable and no acute distress Orientation/consciousness: patient oriented x3 Neck Neck: Yes no lymphadenopathy Resp Auscultation: clear to auscultation bilaterally Cardio Rhythm: regular rhythm GI Other: Umbilical hernia, reducible with a defect about 3 cm, Palpation (GI): Soft to palpation, nontender and no guarding Neuro General: patient oriented x3 Assessment & Plan Assessment & Plan (1) Right sided abdominal pain: Code(s): R10.9 - Unspecified abdominal pain Plan: She had been admitted last month for had abdominal pain with no identifiable etiology on imaging studies. Her urine culture did grow Streptococcus agalactiae but this could have been from contamination of the specimen.. Other differentials are enteritis or colitis. This has since resolved although she does have occasional pain on the right side still Her main complaint now is her umbilical hernia that has been painful. This has been coming out very frequently and has causing her a lot of pain especially when she standing up. This bulges out more prominently now compared to when she was in the hospital. (2) Umbilical hernia: Code(s): K42.9 - Umbilical hernia without obstruction or gangrene Plan: This has been coming more uncomfortable and painful. She is still able to reduce this but this comes out frequently. She wants this repaired because of the significant discomfort. I explained to her the technique of repair of the umbilical hernia with mesh. I reviewed the risks including but not limited to bleeding, infections, bowel injury, recurrence, postop pain, wound infections, in risk of anesthesia, as well as the benefits and alternatives. She understands and wants to proceed. Coding Level of Care Code Est Pt Level 3 (43196) Diagnoses Right sided abdominal pain R10.9 Umbilical hernia K42.9
== END 2023-05-03 15:05 | disposition home or self-care (01) ==
PROVIDERS: Visit Provider Surgery
DX: R10.9 Unspecified abdominal pain (principal); K42.9 Umbilical hernia without obstruction or gangrene
CPT/HCPCS: 99213

== ENCOUNTER → 2023-05-03 14:46 | Outpatient (BNVA) | payer OTHER, SELFPAY | PROVIDERS: Visit Provider Surgery | DX: K42.9 Umbilical hernia without obstruction or gangrene (principal); R10.9 Unspecified abdominal pain | CPT/HCPCS: 99212 ==

== ENCOUNTER 2023-05-08 10:51 | Day surgery (SDC) | payer OTHER, SELFPAY ==
--- NOTE | 2023-05-07 10:02 | HO.ANESPROP2 ---
Documented by User: Pam Pereira NP 05/07/23 10:04 HPI - Anesthesia Eval Consult details Narrative: 47yo F for Hernia Umbilical Reducible with Mesh PMFSH Active Problems Active Problems: All Active Problems (Updated 05/03/23 @ 15:05 by Audi Soliz MD) Umbilical hernia (Acute) Right sided abdominal pain (Acute) Obese (Acute) General medical examination (Acute) Pilar cysts (Acute) Past Medical History Medical History Umbilical hernia Right sided abdominal pain Obese General medical examination Scalp cyst Family History Family History Mother High blood pressure Stroke Father Sarcoid Cirrhosis of liver Surgical History Surgical History History of removal of cyst (~04/12/15) History of surgery on arm History of surgical removal of ganglion cyst Social History Social History Household Members: Family Housing: House Do you presently have visiting nurse or other home services: No Patient Tobacco Use Status: Never used Tobacco Use of substances other than those prescribed or required for medical reasons: No Are you DNR?: No Advance Directives: No Advance Directives Information Provided: Yes service: No Meds Allergies Allergy/AdvReac Type Severity Reaction Status Date / Time acetaminophen [Vicodin] Allergy Unknown nausea and Verified 05/03/23 14:59 vomiting hydrocodone [Vicodin] Allergy Unknown nausea and Verified 05/03/23 14:59 vomiting morphine [Morphine] Allergy Unknown NAUSEA, Verified 05/03/23 14:59 vomiting Environmental Allergy Unknown UNKNOWN Uncoded 05/03/23 14:59 From Vicodin Allergy Unknown NAUSEA Uncoded 05/03/23 14:59 Seasonal Allergies Allergy Unknown Unknown Uncoded 05/03/23 14:59 Exam Pertinent Lab Results Pertinent Lab Results: Laboratory Tests 04/15/23 05:40 WBC 4.4 L Hgb 10.3 L Hct 32.0 L D Plt Count 220 Sodium 140 Potassium 3.3 Chloride 111 H Carbon Dioxide 22 BUN 8 L Creatinine 0.77 Assessment and Plan Assessment Anesthesia Assessment: Chart Reviewed Documented by User: Katarina Ralph MD 05/08/23 12:10 PMFSH Past Medical History Medical History Umbilical hernia Right sided abdominal pain Obese General medical examination Scalp cyst Family History Family History Mother High blood pressure Stroke Father Sarcoid Cirrhosis of liver Surgical History Surgical History History of removal of cyst (~04/12/15) History of surgery on arm History of surgical removal of ganglion cyst History of Problems with Anesthesia: No Social History Social History Household Members: Family Housing: House Do you presently have visiting nurse or other home services: No Patient Tobacco Use Status: Never used Tobacco Use of substances other than those prescribed or required for medical reasons: No Are you DNR?: No Advance Directives: No Advance Directives Information Provided: Yes service: No Meds Allergies Allergy/AdvReac Type Severity Reaction Status Date / Time acetaminophen [Vicodin] Allergy Unknown nausea and Verified 05/03/23 14:59 vomiting hydrocodone [Vicodin] Allergy Unknown nausea and Verified 05/03/23 14:59 vomiting morphine [Morphine] Allergy Unknown NAUSEA, Verified 05/03/23 14:59 vomiting Environmental Allergy Unknown UNKNOWN Uncoded 05/03/23 14:59 From Vicodin Allergy Unknown NAUSEA Uncoded 05/03/23 14:59 Seasonal Allergies Allergy Unknown Unknown Uncoded 05/03/23 14:59 Exam Airway Mallampati Class: III TM Dist: >3cm Neck ROM: Full Loose/Missing/Broken Teeth: No Heart: RRR Lungs: CTA Assessment and Plan Assessment Anesthesia Assessment: Anesthesia Plan Discussed Final Anesthetic Review History of Problems with Anesthesia: No NPO: Yes ASA Class: III Final Preanesthetic Review: Meds/Allgs Chart Reviewed, Consent Obtained/Reviewed and Anes Risks/Benef Reviewed Patient Risk: Intermediate Procedure Risk: Low Anesthetic Plan Anesthetic Plan: GA Disposition: Standard PACU
[2023-05-08] VITALS (12 sets, daily range): BP systolic 129–176; BP diastolic 75–109; PULSE 73–90; RESP 12–18; TEMP 36.1–36.6; O2SAT 94–99; BMI 47.4
[2023-05-08 11:47] LABS: UPreg QC Valid YES; Urine Pregnancy NEGATIVE (NEGATIVE)
--- NOTE | 2023-05-08 11:51 | MHC.SHP ---
Pre-Procedural Eval Section A - 24 Hr Update-Section A only Date of Service: 05/08/23 The patient is an INPATIENT: No Changes since office visit: Yes Cold of Flu in the past 2 weeks, Yes New Medical Problems, Yes Changes in Medication and Yes Patient answered all questions The patient has been examined within 24 hours of the surgical procedure. The History & Physical has been completed within 30 days and I have reviewed it.: Yes Section B - Complete if H&P > 30 days Chief Complaint: Umbilical hernia without obstruction or gangrene Allergies: Allergies Allergy/AdvReac Type Severity Reaction Status Date / Time acetaminophen [Vicodin] Allergy Unknown nausea and Verified 05/03/23 14:59 vomiting hydrocodone [Vicodin] Allergy Unknown nausea and Verified 05/03/23 14:59 vomiting morphine [Morphine] Allergy Unknown NAUSEA, Verified 05/03/23 14:59 vomiting Environmental Allergy Unknown UNKNOWN Uncoded 05/03/23 14:59 From Vicodin Allergy Unknown NAUSEA Uncoded 05/03/23 14:59 Seasonal Allergies Allergy Unknown Unknown Uncoded 05/03/23 14:59 Plan I have reviewed the history and physical and performed a pertinent physical examination on my patient. No changes have occurred unless specified. Time Spent With Patient Time: Total time managing care of this patient today ____ minutes.
[2023-05-08] MEDS: Lactated Ringers 1,000 ML 100 ML IVCONT (11:59)
--- NOTE | 2023-05-08 13:18 | P.OP_ITS ---
Operative Note Operative Note Date of Service: 05/08/23 Narrative: Preop diagnosis: Umbilical hernia Postop diagnosis: Umbilical hernia, with chronically incarcerated omental fat, fascial defect about 2.7 cm Procedure: Repair of umbilical hernia with medium-sized Ventralex mesh, with e xcision of chronically incarcerated omental fat Surgeon: Audi Soliz MD Manager Reliability: VALENCIA Rivera student The patient is a 47-year-old female with note of an umbilical hernia that this h as been increasing in size and becoming more painful. She understood the technique of repair with mesh. She was aware of the risks, benefits, and alternatives. She was brought to the operating room. She was placed supine under general anesthesia via endotracheal tube. The abdomen was prepped and draped in the usual sterile fashion. A surgical time-out was done. The patient received cefazolin 2 g IV preoperatively The hernia was on the superior aspect of the umbilicus. I infiltrated the planned line of incision with lidocaine 1%. I made a longitudinal incision above the umbilicus using blade 15. This was carried down with electrocautery through the full-thickness of the skin and subcutaneous fat. We continued with dissection using Metzenbaum scissors until was able to visualize hernia contents. I sharply dissected the rest of the subcutaneous layer from the hernia sac using Metzenbaum scissors and electrocautery. It is noted that the patient has a very thick amount of subcutaneous fat in view of her morbid obesity. I continued to dissect down to the fascial level. I defined the fascial borders on the hernia. I the umbilicus off of the hernia contents. I then proceeded to incise part of the hernia sac at the fascial level. I opened the sac and can continue to gently dissect the rest of the sac off of the fascial edge until this was completely . I examined the entire hernia contents and this was composed of large amounts of omentum. We could not reduce the hernia contents with the fascial defect because of the large amounts of chronically incarcerated omentum. Therefore proceeded to do partial omentectomy by serially ligating and resecting some of the omentum. This was sent as a specimen I was then able to reduce the rest of the omentum through the fascial defect. The surrounding fascia was free of any adhesions. The fascial defect was about 2.7 cm in diameter I used a medium-sized Ventralex mesh. This was position under the fascia and flattened. I secured the Prolene straps of the mesh to the fascial layer using Prolene 2 sutures. I trimmed the Prolene straps flush on the fascial level I closed the fascia with a running Maxon 1 stitch. Prior to closure we had ensured hemostasis I then irrigated. I reapposed the deep subcutaneous layer with simple interrupted Polysorb 3-0 sutures. Skin closure was achieved with Polysorb 4-0 subcuticular running stitch. I infiltrated the area with Marcaine 0.5% for postop analgesia. Dressings were applied. The procedure was completed The patient tolerated the procedure well. There were no immediate complications. Initial and final counts of sponges and instruments were correct. Estimated blood loss was about 25 cc The patient was extubated without difficulty and transferred to the recovery room with stable vital signs.
[2023-05-08] MEDS: fentaNYL citrate/PF 100 MCG/2 ML VIAL 25 MCG IVPUSH ×4 (13:30→13:45)
[2023-05-08] MEDS: oxyCODONE HCl Immed Release 5 MG TABLET PO (13:35)
[2023-05-08] MEDS: HYDROmorphone HCl 0.5 MG/0.5 ML SYRINGE 0.25 MG IVPUSH ×2 (13:50→13:55)
== END 2023-05-08 15:15 | disposition home or self-care (01) ==
PROVIDERS: Nurse Practitioner; Visit Provider Surgery
PROC: (CPT 49592; principal; 2023-05-08 12:30)
DX: K42.0 Umbilical hernia with obstruction, without gangrene (principal); E66.01 Morbid (severe) obesity due to excess calories; Z88.5 Allergy status to narcotic agent
CPT/HCPCS: 49592; 81025; 88302; C1781; J0131; J0665; J0690; J1170; J2250; J2704; J3010

== ENCOUNTER → 2023-05-08 10:51 | Outpatient (BNV) | payer OTHER, SELFPAY | PROVIDERS: Visit Provider Surgery | DX: K42.0 Umbilical hernia with obstruction, without gangrene (principal) | CPT/HCPCS: 49592 ==

== ENCOUNTER 2023-05-21 13:19 | Outpatient (AMB) | payer OTHER, SELFPAY ==
--- NOTE | 2023-05-21 13:20 | MHC.OFFVIS ---
Intake Intake Visit Reasons: S/P umbilical hernia w/mesh Intake Note: This patient presents for a post-op assessment status post umbilical hernia repair with mesh. Patient c/o; reports no complaints at this time. Talend Etl Developer Required: No Accompanied by: Self / Same As Patient Allergies acetaminophen [Vicodin] Allergy (Unknown, Verified 05/21/23 13:27) nausea and vomiting hydrocodone [Vicodin] Allergy (Unknown, Verified 05/21/23 13:27) nausea and vomiting morphine [Morphine] Allergy (Unknown, Verified 05/21/23 13:27) NAUSEA, vomiting Environmental Allergy (Unknown, Uncoded 05/21/23 13:27) UNKNOWN From Vicodin Allergy (Unknown, Uncoded 05/21/23 13:27) NAUSEA Seasonal Allergies Allergy (Unknown, Uncoded 05/21/23 13:) Unknown HPI S/P umbilical hernia w/mesh HPI Details She underwent repair of a large umbilical hernia with mesh along with partial omentectomy last May 08, 2023. She tolerated procedure well. She says she is doing well and denies significant complaints. [facility] Medical History Umbilical hernia Right sided abdominal pain Obese General medical examination Scalp cyst Surgical History History of removal of cyst (~04/12/15) History of surgery on arm History of surgical removal of ganglion cyst Family History Mother High blood pressure Stroke Father Sarcoid Cirrhosis of liver Social History Household Members: Family Housing: House Do you presently have visiting nurse or other home services: No Patient Tobacco Use Status: Never used Tobacco service: No Review of Systems Const Denies chills and Denies fever(s) Card Denies chest pain, Denies dyspnea and Denies dyspnea on exertion Resp Denies cough, Denies dyspnea and Denies dyspnea on exertion GI Denies hematochezia and Denies change in bowel habits Denies hematuria Musc Denies back pain and Denies limited range of motion Neuro Denies focal weakness and Denies convulsions Psych Denies depression and Denies mood swings Physical Exam Const Other: Morbidly obese General: comfortable and no acute distress Resp Effort & Inspection: normal respiratory effort GI Other: Hernia repair site is well healed, not infected, repair site intact Assessment & Plan Assessment & Plan (1) Umbilical hernia: Code(s): K42.9 - Umbilical hernia without obstruction or gangrene Plan: Status post repair of an large umbilical hernia, partial omentectomy, use of mesh. She is doing very well. Her incision is well healed. The repair site is intact I advised her to avoid any lifting more than 15 lb for at least 1 more month. She was counseled on the benefits of weight loss. She can follow up with me on a p.r.n. basis. Coding Level of Care Code Global (52986) Diagnoses Umbilical hernia K42.9
== END 2023-05-21 13:43 | disposition home or self-care (01) ==
PROVIDERS: Visit Provider Surgery
DX: K42.9 Umbilical hernia without obstruction or gangrene (principal)
CPT/HCPCS: 99212

== ENCOUNTER → 2023-05-21 13:19 | Outpatient (BNVA) | payer OTHER, SELFPAY | PROVIDERS: Visit Provider Surgery | DX: Z48.815 Encounter for surgical aftercare following surgery on the digestive system (principal); Z98.890 Other specified postprocedural states | CPT/HCPCS: 99212 ==

== ENCOUNTER 2023-06-25 10:53 | Outpatient (AMB) | payer OTHER, SELFPAY ==
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
[2023-06-25 11:10] VITALS: BP 138/88; PULSE 88; RESP 14; TEMP 36.2; O2SAT 98; BMI 46.4
== END 2023-06-25 11:52 | disposition home or self-care (01) ==
PROVIDERS: PCP Nurse Practitioner Family; Visit Provider Nurse Practitioner Family
DX: D25.9 Leiomyoma of uterus, unspecified (principal); E66.01 Morbid (severe) obesity due to excess calories; Z68.42 Body mass index [BMI] 45.0-49.9, adult; Z23 Encounter for immunization; N94.9 Unspecified condition associated with female genital organs and menstrual cycle; Z12.11 Encounter for screening for malignant neoplasm of colon; G90.511 Complex regional pain syndrome I of right upper limb; K76.0 Fatty (change of) liver, not elsewhere classified
CPT/HCPCS: 90471; 90686; 99215

== ENCOUNTER 2023-07-25 13:15 | Outpatient (REF) | payer OTHER, SELFPAY ==
--- NOTE | ~2023-07-25 | MM_ITS ---
EXAMINATION: MM SCREENING DIGITAL BREAST TOMOSYNTHESIS, BILATERAL CLINICAL INFORMATION: Screening. Asymptomatic. COMPARISON: Mammography: This study is a baseline examination. TECHNIQUE: Digital breast tomosynthesis is performed in both the craniocaudal and mediolateral oblique views along with computer-aided detection (CAD). Synthesized 2D images are generated from the tomosynthesis. FINDINGS: There are scattered areas of fibroglandular density (ACR BI-RADS breast composition Category b). There is a focal asymmetry of the upper inner quadrant of the left breast at a middle depth. This warrants additional mammographic and targeted sonographic evaluation. In the right breast, there are no significant masses, abnormal calcifications, or other abnormalities. MM/MM tomosynthesis screening BI IMPRESSION: Focal asymmetry of the left breast warrants additional mammographic and targeted sonographic imaging. No mammographic signs of malignancy right breast. ASSESSMENT: BI-RADS BI-RADS 0 - Incomplete: Needs additional Imaging. RECOMMENDATION: 1. Additional views of the left breast. 2. Targeted ultrasound if warranted after review of the additional views. 3. Radiology department staff will contact the patient for additional imaging. Additional Imaging required This examination should not preclude the clinical evaluation of a suspicious palpable abnormality. This patient's information was entered into a reminder system with a target due date for their next mammogram.
== END 2023-07-25 13:16 | disposition home or self-care (01) ==
LOC: HO.MAMMO 13:15
PROVIDERS: PCP Nurse Practitioner Family; Visit Provider Nurse Practitioner Family
DX: Z12.31 Encounter for screening mammogram for malignant neoplasm of breast (principal)
CPT/HCPCS: 77063; 77067

== ENCOUNTER → 2023-07-25 13:30 | Outpatient (BNV) | payer OTHER, SELFPAY | PROVIDERS: PCP Nurse Practitioner Family; Visit Provider Radiology Diagnostic Radiology | DX: Z12.31 Encounter for screening mammogram for malignant neoplasm of breast (principal) | CPT/HCPCS: 77063; 77067 ==

== ENCOUNTER 2023-08-27 10:21 | Outpatient (REF) | payer OTHER, SELFPAY ==
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
== END 2023-08-27 10:22 | disposition home or self-care (01) ==
LOC: HO.MAMMO 10:21
PROVIDERS: PCP Nurse Practitioner Family; Visit Provider Nurse Practitioner Family
DX: N60.82 Other benign mammary dysplasias of left breast (principal)
CPT/HCPCS: 76642; 77061; 77065

== ENCOUNTER → 2023-08-27 10:30 | Outpatient (BNV) | payer OTHER, SELFPAY | PROVIDERS: PCP Nurse Practitioner Family; Visit Provider Radiology Diagnostic Radiology | DX: R92.8 Other abnormal and inconclusive findings on diagnostic imaging of breast (principal) | CPT/HCPCS: 76642; 77061; 77065 ==

== ENCOUNTER 2023-08-28 11:22 | Outpatient (AMB) | payer OTHER, SELFPAY ==
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
[2023-08-28 11:30] VITALS: PULSE 82; BMI 47.4
== END 2023-08-28 11:47 | disposition home or self-care (01) ==
PROVIDERS: PCP Nurse Practitioner Family; Visit Provider Surgery
DX: R92.8 Other abnormal and inconclusive findings on diagnostic imaging of breast (principal)
CPT/HCPCS: 99204

== ENCOUNTER → 2023-08-28 11:22 | Outpatient (BNVA) | payer OTHER, SELFPAY | PROVIDERS: PCP Nurse Practitioner Family; Visit Provider Surgery | DX: R92.8 Other abnormal and inconclusive findings on diagnostic imaging of breast (principal) | CPT/HCPCS: 99202 ==

== ENCOUNTER 2023-08-29 07:39 | Outpatient (REF) | payer OTHER, SELFPAY ==
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
[2023-08-29] MEDS: Sodium Bicarbonate 8.4% 50 MEQ/50 ML VIAL SUBCUT (09:14)
[2023-08-29] MEDS: Lidocaine HCl 1 % 20 ML VIAL 9 ML SUBCUT (09:15)
== END 2023-08-29 07:40 | disposition home or self-care (01) ==
LOC: HO.MAMMO 07:39
PROVIDERS: PCP Nurse Practitioner Family; Visit Provider Surgery
DX: R92.8 Other abnormal and inconclusive findings on diagnostic imaging of breast (principal)
CPT/HCPCS: 19083; 77061; 77065; 88305; A4648; C1894

== ENCOUNTER → 2023-08-29 08:00 | Outpatient (BNV) | payer OTHER, SELFPAY | PROVIDERS: PCP Nurse Practitioner Family; Visit Provider Radiology Diagnostic Radiology | DX: R92.8 Other abnormal and inconclusive findings on diagnostic imaging of breast (principal) | CPT/HCPCS: 19083; 77065 ==

== ENCOUNTER 2023-09-11 10:38 | Outpatient (AMB) | payer OTHER, SELFPAY ==
--- NOTE | 2023-09-11 10:40 | A.OFFVIS_ITS ---
Vital Signs 09/11/23 10:45 Height 5 ft Weight 243 lb BMI 47.5 Pulse 99 Intake Visit Reasons: follow up us bx Lt breast 11 o'clock mass Intake Note: Patient is seen in office for ultrasound biopsy results, following left breast 11 o'clock mass. Pt c/o: no concerns healing as expected Modular Set Crew Member Required: No Accompanied by: Self / Same As Patient Allergies acetaminophen [Vicodin] Allergy (Unknown, Verified 08/28/23 11:28) nausea and vomiting hydrocodone [Vicodin] Allergy (Unknown, Verified 08/28/23 11:28) nausea and vomiting morphine [Morphine] Allergy (Unknown, Verified 08/28/23 11:28) NAUSEA, vomiting Environmental Allergy (Unknown, Uncoded 08/28/23 11:28) UNKNOWN From Vicodin Allergy (Unknown, Uncoded 08/28/23 11:28) NAUSEA Seasonal Allergies Allergy (Unknown, Uncoded 08/28/23 11:28) Unknown HPI Comments Details: 48-year-old female patient returning 1 week following left breast core biopsy. Pathology revealed benign breast tissue with no atypia or malignancy. Tolerated the procedure well and feels well today. She denies any ongoing breast symptoms. [facility] Medical History Pilar cysts Umbilical hernia Right sided abdominal pain Obese General medical examination Scalp cyst Surgical History Hx of umbilical hernia repair (05/08/23) History of removal of cyst (~04/12/15) History of surgery on arm History of surgical removal of ganglion cyst Family History Mother High blood pressure Stroke Father Sarcoid Cirrhosis of liver Social History Household Members: Family Housing: House Do you presently have visiting nurse or other home services: No Patient Tobacco Use Status: Former Tobacco user Years Smoked: less than a year e-Cigarette/Vaping Use: Never Used Second Hand Smoke Exposure: No service: No Current occupational status: employed Current occupation: [employer] Current occupational exposures/hazards: No Cognitive needs: No Hearing needs: No Vision needs: Yes Female Reproductive History Menstrual Age of Menarche: 15 Review of Systems Const All systems reviewed & are unremarkable except as noted in HPI and below Physical Exam Vital Signs: Last Vital Signs Pulse 99 09/11/23 10:45 BMI result Body Mass Index 47.5 Const General: no acute distress Nutritional Appearance: well nourished Orientation/consciousness: patient oriented x3 Chest Other: Exam deferred Resp Effort & Inspection: normal respiratory effort Skin Other: Warm, dry, no rash Neuro General: patient oriented x3 Extrem Other: No edema Assessment & Plan Assessment & Plan (1) Abnormal ultrasound of breast: Code(s): R92.8 - Other abnormal and inconclusive findings on diagnostic imaging of breast Category: Medical (2) Abnormal mammogram of left breast: Code(s): R92.8 - Other abnormal and inconclusive findings on diagnostic imaging of breast Category: Medical Plan Patient returns 1 week following a recent ultrasound-guided core biopsy of the left breast. She tolerated well the pathology revealed benign breast tissue. I reviewed the pathology and provided her a copy of the report. Routine screening mammography is recommended in 1 year. She should follow up as needed. Coding Level of Care Code Est Pt Level 3 (87030) Diagnoses Abnormal ultrasound of breast R92.8 Abnormal mammogram of left breast R92.8
[2023-09-11 10:45] VITALS: PULSE 99; BMI 47.5
== END 2023-09-11 10:48 | disposition home or self-care (01) ==
PROVIDERS: PCP Nurse Practitioner Family; Visit Provider Surgery
DX: R92.8 Other abnormal and inconclusive findings on diagnostic imaging of breast (principal)
CPT/HCPCS: 99213

== ENCOUNTER → 2023-09-11 10:38 | Outpatient (BNVA) | payer OTHER, SELFPAY | PROVIDERS: PCP Nurse Practitioner Family; Visit Provider Surgery | DX: R92.8 Other abnormal and inconclusive findings on diagnostic imaging of breast (principal); Z98.890 Other specified postprocedural states | CPT/HCPCS: 99212 ==

== ENCOUNTER 2023-10-19 10:13 | Outpatient (REF) | payer BC, SELFPAY ==
[2023-10-19 10:57] LABS: Estimated Average Glucose 128 mg/dL; Hemoglobin A1c % 6.1 % (<6.0)
[2023-10-19 11:25] LABS: Alanine Aminotransferase 33 U/L (0-31); Albumin Level 4.1 g/dL (3.5-5.0); Alkaline Phosphatase 81 U/L (39-117); Anion Gap 13 (12-20); Aspartate Amino Transferase 23 U/L (5-31); Bilirubin Total 0.6 mg/dL (0.0-1.0); Blood Urea Nitrogen 11 mg/dL (9-16); Calcium 9.3 mg/dL (8.4-10.2); Carbon Dioxide 21 mmol/L (22-29); Chloride 110 mmol/L (96-108); Cholesterol 227 mg/dL (<200); Estimated Glomerular Filt Rate > 60; Glucose Fasting 136 mg/dL (60-99); HDL Cholesterol 39 mg/dL (>40); LDL Cholesterol Calculated 149 mg/dL (<100); Potassium 4.2 mmol/L (3.3-5.1); Sodium 140 mmol/L (135-145); Triglycerides 199 mg/dL (<150)
[2023-10-19 11:32] LABS: TSH reflex Free T4 2.01 uIU/mL (0.32-4.0)
[2023-10-25 17:28] LABS: VITAMIN D (1,25 OH) D3 82 pg/mL; Vit D (1,25-Dihydroxy) Total 82 pg/mL (18-72); Vitamin D (1,25 OH) D2 <8 pg/mL
== END 2023-10-19 10:14 | disposition home or self-care (01) ==
LOC: HO.LAB 10:13
PROVIDERS: PCP Nurse Practitioner Family; Visit Provider Nurse Practitioner Family
DX: Z00.00 Encounter for general adult medical examination without abnormal findings (principal); K76.0 Fatty (change of) liver, not elsewhere classified; Z13.1 Encounter for screening for diabetes mellitus; Z13.89 Encounter for screening for other disorder
CPT/HCPCS: 36415; 80053; 80061; 82652; 83036; 84443

== ENCOUNTER 2023-10-22 07:48 | Outpatient (AMB) | payer BC, SELFPAY ==
--- NOTE | 2023-10-22 07:54 | A.OFFPC_ITS ---
Vital Signs 10/22/23 08:07 Height 5 ft 0.87 in Weight 247 lb 3 oz BMI 46.9 BP 116/72 Blood Pressure Location Lt brachial Position Sitting Respiration 16 Pulse 87 Pulse Source Pulse Oximeter Pulse Oximetry (%) 97 Oxygen Delivery Method Room Air Intake Visit Reasons: CPE/Labs w me Intake Note: Physical. Lab results. 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: No Allergies acetaminophen [Vicodin] Allergy (Unknown, Verified 10/22/23 08:13) nausea and vomiting hydrocodone [Vicodin] Allergy (Unknown, Verified 10/22/23 08:13) nausea and vomiting morphine [Morphine] Allergy (Unknown, Verified 10/22/23 08:13) NAUSEA, vomiting Environmental Allergy (Unknown, Uncoded 08/28/23 11:28) UNKNOWN From Vicodin Allergy (Unknown, Uncoded 08/28/23 11:28) NAUSEA Seasonal Allergies Allergy (Unknown, Uncoded 08/28/23 11:28) Unknown Medication List - Last Reconciled 10/22/23 by MEGAN Rodriguez- No Known Home Meds Tobacco use date assessed: 10/22/23 Dental Screening Dental Screen Date: 06/25/23 HPI HPI Comments History of Present Illness Details 48-year-old female with obesity, uterine fibroid, bilat adnexal cysts, hepatic steatosis, CRPS, hyperlipidemia, prediabetes s/p repair of large umbilical hernia with mesh along with partial omentectomy 05/08/2023, left forearm orthopedic surgery during childhood, right hand surgery - ganglion cyst 2013 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 Denies any other significant family hx. 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 07/2023 Routine screening mammography is recommended in 1 year. Colon referred, initial consult appt 12/19/23 Dexa - still getting periods Vaccines: Tdap 2018 Pap - overdue, this appt was cancelled, she needs to r/s. Will f/u with office on this. Here today for CPE. On no medications; active w/ care team with proper f/u. Vision: contacts, last eye exam 2023 GI: has bloating and abd pain after eating; started prior to surgery however continues. admits it was worse right after the surgery. unsure of food triggers; not every time she eats; has tried to reduce carbs, gluten, etc w/o change. Reports normal elimination. Offered Pylori testing,declined @ this time. Skin : was evaled in the past, had bx of right shoulder mole in the past which was negative, no other concerns; has several moles - life long. Labs from 10/19/2023 show normal electrolytes, renal function, elevating fasting glucose of 136 with a hemoglobin A1c of 6.1%. This is higher than the last time it was checked in 2019. At that time it was 5.5%, mild elevation in her ALT 33 otherwise normal LFTs, her bilirubin level is now normal, along with her protein levels, unfortunately her lipid profile is worse than the previous check of 2019. Her total cholesterol is 227, triglycerides 199, LDL 149, HDL 39, vitamin-D pending, normal General: Well developed, well nourished, in no acute distress. Appears stated age. Head: Normocephalic, atraumatic. Eyes: Pupils are equal, round and reactive to light and accommodation. Conjunctivae are clear. Vision grossly normal. Ears: cerumen impaction bilat Nose: Patent, without discharge. Mouth: There are no ulcers or lesions noted. No inflammation, no post nasal drip, no plaques nor exudates. Neck: Supple, no adenopathy or thyromegaly. Lungs: Clear to auscultation bilaterally. No rales, rhonchi or wheeze noted. Good air flow in all faustin. Heart: Regular rate and rhythm. No murmurs, click, rubs or gallops are noted. Abdomen: Bowel sounds present in all quadrants. The abdomen is soft, nontender, with no masses or organomegaly noted. No hernias are noted. Musculoskeletal: Joints are nontender, without swelling, redness, or effusions. Range of motion is observed to be normal. Pulses: Peripheral pulses are equal and palpable bilaterally. Extremities: No clubbing, cyanosis nor edema is noted. Neurologic: Gait and station normal. Cranial Nerves 2-12 intact. Motor strength grossly symmetrical and intact. No sensory loss. Balance normal. Skin: No rashes, ulcers, or lesions noted. Turgor is good. Skin color is good. Hair and nails are without abnormalities. Healing ecchymosis to bilat arm from labs draw; multiple nevi throughout Psych: Normal eye contact, affect and mood appropriate, and normal interactions. Patient is alert and appropriate to context. Plan: Refer to nutrition to help cholesterol and blood sugar and help with wt loss. repeat labs in 6 months with office visit; no meds @ this time. Offered Pylori testing,declined @ this time;encouraged to mention this to gI, whom you are seeing in November, [place], RTO Sunday for lavage [facility] Medical History (Updated 10/22/23 @ 08:40 by Katie Felix, RURAL MAIL CONTRACTOR-) Abnormal mammogram of left breast Abnormal ultrasound of breast Pilar cysts Umbilical hernia Right sided abdominal pain Obese General medical examination Scalp cyst Surgical History (Updated 10/22/23 @ 08:07 by Kayli Corona SAW HANDLE ASSEMBLER) H/O breast biopsy Hx of umbilical hernia repair (05/08/23) History of removal of cyst (~04/12/15) History of surgery on arm History of surgical removal of ganglion cyst Family History Mother High blood pressure Stroke Father Sarcoid Cirrhosis of liver Social History Household Members: Family Housing: House Do you presently have visiting nurse or other home services: No Patient Tobacco Use Status: Former Tobacco user Years Smoked: less than a year e-Cigarette/Vaping Use: Never Used Second Hand Smoke Exposure: No service: No Current occupational status: employed Current occupation: [employer] Current occupational exposures/hazards: No Cognitive needs: No Hearing needs: No Vision needs: Yes Female Reproductive History Menstrual Age of Menarche: 15 Questionnaire Thrive Questionnaire Date Thrive assessed: 04/15/23 HEMA-7 AMB Questionnaire HEMA-7 Date HEMA - 7 assessed: 06/25/23 Source: Developed by Drs. Manjit Velásquez, Cathleen Stokes, Azam Allen and colleagues, with an educational anneliese from [employer]. Physical exam (Primary Care) Vital Signs: Last Vital Signs Pulse 87 10/22/23 08:07 Resp 16 10/22/23 08:07 BP 116/72 10/22/23 08:07 Pulse Ox 97 10/22/23 08:07 Oxygen Delivery Method Room Air 10/22/23 08:07 BMI result Body Mass Index 46.9 Tobacco/Smoking Status: Tobacco use Status Tobacco use date assessed 10/22/23 10/22/23 08:11 Patient Tobacco Use Status Former Tobacco user 10/22/23 07:55 e-Cigarette/Vaping Use Never Used 10/22/23 07:55 Thrive Assessment: Date of Thrive Assessment Date Thrive assessed 04/15/23 10/22/23 07:55 Assessment and Plan Assessment & Plan (1) Encounter for general adult medical examination without abnormal findings: Code(s): Z00.00 - Encounter for general adult medical examination without abnormal findings (2) Hyperlipidemia: Code(s): E78.5 - Hyperlipidemia, unspecified Qualifiers: Hyperlipidemia type: mixed hyperlipidemia Qualified Code(s): E78.2 - Mixed hyperlipidemia (3) Prediabetes: Code(s): R73.03 - Prediabetes (4) Morbid obesity: Comment: BMI > 46 Code(s): E66.01 - Morbid (severe) obesity due to excess calories (5) Impacted cerumen, bilateral: Code(s): H61.23 - Impacted cerumen, bilateral (6) Postprandial abdominal bloating: Code(s): R14.0 - Abdominal distension (gaseous) Orders: Orders Comprehensive [place]. Panel Fast 02/24/24 E78.5 - Hyperlipidemia, unspecified, R73.03 - Prediabetes Lipid Panel 02/24/24 E78.5 - Hyperlipidemia, unspecified, R73.03 - Prediabetes Hemoglobin A1c 02/24/24 E78.5 - Hyperlipidemia, unspecified, R73.03 - Prediabetes Referrals Nutrition/Dietitian Referral E66.01 - Morbid (severe) obesity due to excess calories, E78.5 - Hyperlipidemia, unspecified, R73.03 - Prediabetes Medications: New carbamide peroxide 6.5% (Debrox) 5 drps otic (ears) DAILY 15 mL 0RF BILAT EARS 5 days Patient Instructions: Health screenings for women You should visit your health care provider from time to time, even if you are healthy. The purpose of these visits is to: Screen for medical issues Assess your risk for future medical problems Encourage a healthy lifestyle Update vaccinations and other preventive care services Help you get to know your provider in case of an illness Information Even if you feel fine, you should still see your provider for regular checkups. These visits can help you avoid problems in the future. For example, the only way to find out if you have high blood pressure is to have it checked regularly. High blood sugar and high cholesterol levels also may not have any symptoms in the early stages. A simple blood test can check for these conditions. There are specific times when you should see your provider or receive specific health screenings. The [place] Preventive Services Task Force publishes a list of recommended screenings. Below are screening guidelines for women ages 18 to 39. BLOOD PRESSURE SCREENING Your blood pressure should be checked at least once every 3 to 5 years if: Your blood pressure is in the normal range (top number less than 120 mm Hg and bottom number less than 80 mm Hg) You don't have risk factors for high blood pressure Ask your provider if you need your blood pressure checked more often if: The top number is 120 to 129 mm Hg or the bottom number is 70 to 79 mm Hg You have diabetes, heart disease, kidney problems, are overweight, or have certain other health conditions You have a first-degree relative with high blood pressure You are Black You had high blood pressure during a If the top number is 130 mm Hg or greater or the bottom number is 80 mm Hg or greater, this is considered stage 1 hypertension. Schedule an appointment with your provider to learn how you can reduce your blood pressure. Watch for blood pressure screenings in your area. Ask your provider if you can stop in to have your blood pressure checked. BREAST CANCER SCREENING Experts do not agree about the benefits of breast self-exams in finding breast cancer or saving lives. Talk to your provider about what is best for you. A screening mammogram is not recommended for most women under age 40. Your provider may discuss and recommend mammograms, MRI scans, or ultrasounds if you have an increased risk for breast cancer, such as: A mother or sister who had breast cancer at a young age (most often starting screening earlier than the age the close relative was diagnosed) You carry a high-risk genetic marker CERVICAL CANCER SCREENING Cervical cancer screening should start at age 21 years unless your provider advises otherwise. After the first test: Women ages 21 through 29 should have a Pap test every 3 years. Exoprts do not agree on whether HPV testing is recommended for this age group. Women ages 30 through 65 should be screened with either a Pap test every 3 years or the HPV test every 5 years or both tests every 5 years (called cotesting ). Women who have been treated for precancer (cervical dysplasia) should continue to have Pap tests for 20 years after treatment or until age 65, whichever is longer. If you have had your uterus and cervix removed (total hysterectomy), and you have not been diagnosed with cervical cancer or precancer (high grade cervical neoplasia), you do not need cervical cancer screening. CHOLESTEROL SCREENING Cholesterol screening should begin at: Age 45 for women with no known risk factors for coronary heart disease Age 20 for women with known risk factors for coronary heart disease Repeat cholesterol screening should take place: Every 5 years for women with normal cholesterol levels More often if changes occur in lifestyle (including weight gain and diet) More often if you have diabetes, heart disease, kidney problems, or certain other conditions DIABETES SCREENING You should be screened for diabetes starting at age 35 and then repeated every 3 years if you have no risk factors for diabetes. Screening may need to start earlier and be repeated more often if you have other risk factors for diabetes, such as: You have a first degree relative with diabetes. You are overweight or have obesity. You have high blood pressure, prediabetes, or a history of heart disease. Screening for diabetes should be done if you are planning to become and you are overweight and have other risk factors such as high blood pressure. DENTAL EXAM Go to the dentist once or twice every year for an exam and cleaning. Your dentist will evaluate if you need more frequent visits. EYE EXAM Have an eye exam every 5 to 10 years before age 40. If you have vision problems, have an eye exam every 2 years or more often if recommended by your provider. You should have an eye exam that includes an examination of your retina (back of your eye) at least every year if you have diabetes. IMMUNIZATIONS Commonly needed vaccines include: Flu shot: get one every year. COVID-19 vaccine: ask your provider what is best for you. Tetanus-diphtheria and acellular pertussis (Tdap) vaccine: have one at or after age 19 as one of your tetanus-diphtheria vaccines if you did not receive it as an adolescent. Tetanus-diphtheria: have a booster (or Tdap) every 10 years. Varicella vaccine: receive 2 doses if you never had chickenpox or the varicella vaccine. Hepatitis B vaccine: receive 2, 3, or 4 doses, depending on your exact circumstances. Measles, mumps, and rubella (MMR) vaccine: receive 1 to 2 doses if you are not already immune to MMR. Your provider can tell you if you are immune. Ask your provider about the human papillomavirus (HPV) vaccine if: You have not received the HPV vaccine in the past You have not completed the full vaccine series (you should catch up on this shot) Ask your provider if you should receive other immunizations if you have certain health problems that increase your risk for some diseases such as pneumonia. INFECTIOUS DISEASE SCREENING Women who are sexually active should be screened for chlamydia and gonorrhea up until age 25. Women 25 years and older should be screened for chlamydia and gonorrhea if at hi gh risk. Screening for hepatitis C: All adults ages 18 to 79 should get a one-time test for hepatitis C. people should be screened at every . Screening for human immunodeficiency virus (HIV): All people ages 15 to 65 should get a one-time test for HIV. Depending on your lifestyle and medical history, you may also need to be screened for infections such as syphilis and HIV, as well as other infections. PHYSICAL EXAM All adults should visit their provider from time to time, even if they are healthy. The purpose of these visits is to: Screen for disease Assess your risk of future medical problems Encourage a healthy lifestyle Update your vaccinations and other preventive care services Maintain a relationship with a provider in case of an illness Your height, weight, and BMI should be checked at every exam. During your exam, your provider may ask you about: Depression and anxiety Diet and exercise Alcohol and tobacco use Safety issues, such as using seat belts, smoke detectors, and intimate partner violence Your medicines and risk for interactions SKIN SELF-EXAM Your provider may check your skin for signs of skin cancer, especially if you're at high risk, such as if you: Have had skin cancer before Have close relatives with skin cancer Have a weakened immune system OTHER SCREENING Talk with your provider about colon cancer screening if you have a strong family history of colon cancer or polyps, or if you have had inflammatory bowel disease or polyps yourself. Routine bone density screening of women under 40 is not recommended. Coding Level of Care Code Est Pt Prev Care 40-64y(23113) Diagnoses Encounter for general adult medical examination without abnormal findings Z00.00 Mixed hyperlipidemia E78.2 Hyperlipidemia type: mixed hyperlipidemia Prediabetes R73.03 Morbid obesity E66.01 Impacted cerumen, bilateral H61.23 Postprandial abdominal bloating R14.0
[2023-10-22 08:07] VITALS: BP 116/72; PULSE 87; RESP 16; O2SAT 97; BMI 46.9
== END 2023-10-22 08:40 | disposition home or self-care (01) ==
PROVIDERS: PCP Nurse Practitioner Family; Visit Provider Nurse Practitioner Family
DX: Z00.00 Encounter for general adult medical examination without abnormal findings (principal); E78.2 Mixed hyperlipidemia; E66.01 Morbid (severe) obesity due to excess calories; Z68.42 Body mass index [BMI] 45.0-49.9, adult; R73.03 Prediabetes; H61.23 Impacted cerumen, bilateral; R14.0 Abdominal distension (gaseous)
CPT/HCPCS: 99396

== ENCOUNTER 2023-10-26 08:58 | Outpatient (AMB) | payer BC, SELFPAY ==
--- NOTE | 2023-10-26 09:28 | MHC.PC.OV ---
Vital Signs 10/26/23 09:31 Weight 247 lb BP 130/84 Blood Pressure Location Lt brachial Position Sitting Pulse 78 Pulse Source Pulse Oximeter Pulse Oximetry (%) 98 Oxygen Delivery Method Room Air Intake Visit Reasons: bilat ear lavage Intake Note: Patient here to check bilat ears Allergies hydrocodone [Vicodin] Allergy (Unknown, Verified 10/26/23 09:40) nausea and vomiting morphine [Morphine] Allergy (Unknown, Verified 10/26/23 09:40) NAUSEA, vomiting Environmental Allergy (Unknown, Uncoded 10/26/23 09:40) UNKNOWN From Vicodin Allergy (Unknown, Uncoded 10/26/23 09:40) NAUSEA Seasonal Allergies Allergy (Unknown, Uncoded 10/26/23 09:40) Unknown Medication List - Last Reconciled 10/26/23 by MARÍA Rodriguez Tobacco use date assessed: 10/22/23 Dental Screening Dental Screen Date: 06/25/23 HPI HPI Comments History of Present Illness Details Here today for cerumen lavage. She was prescribed Debrox for bilat ears after noting bilat cerumen impaction at her last office visit. She reports taking as directed. She felt some fullness in her right ear and was able to lavage herself at home last night with positive results. She continues to endorse some sinus pain and pressure bilat. Exam: Successful lavage of the left ear using hydrogen peroxide and water. EAC clear on the right. TMs intact bilat with positive erythema, congestion and loss of landmarks. Bilat sinus tenderness over maxillary and frontal sinuses bilat. Plan Successful ear lavage. Treat for acute sinusitis with Augmentin and Flonase. Educated on reasons to return to the office RTo in Mar as scheduled, sooner PRN This note is constructed using voice recognition software. While every effort has been made to ensure accuracy in steam press operator, still errors may have been included Sometimes, these errors may affect the content or meaning of the given sentence . [facility] Medical History (Updated 10/22/23 @ 08:40 by MARÍA Rodriguez) Abnormal mammogram of left breast Abnormal ultrasound of breast Pilar cysts Umbilical hernia Right sided abdominal pain Obese General medical examination Scalp cyst Surgical History (Updated 10/22/23 @ 08:07 by Kayli Corona CMA) H/O breast biopsy Hx of umbilical hernia repair (05/08/23) History of removal of cyst (~04/12/15) History of surgery on arm History of surgical removal of ganglion cyst Family History Mother High blood pressure Stroke Father Sarcoid Cirrhosis of liver Social History Household Members: Family Housing: House Do you presently have visiting nurse or other home services: No Patient Tobacco Use Status: Former Tobacco user Years Smoked: less than a year e-Cigarette/Vaping Use: Never Used Second Hand Smoke Exposure: No service: No Current occupational status: employed Current occupation: [employer] Current occupational exposures/hazards: No Cognitive needs: No Hearing needs: No Vision needs: Yes Female Reproductive History Menstrual Age of Menarche: 15 Questionnaire Thrive Questionnaire Date Thrive assessed: 04/15/23 HEMA-7 AMB Questionnaire HEMA-7 Date HEMA - 7 assessed: 06/25/23 Source: Developed by Drs. Manjit Velásquez, Cathleen Stokes, Azam Allen and colleagues, with an educational anneliese from [employer]. Physical exam (Primary Care) Vital Signs: Last Vital Signs Pulse 78 10/26/23 09:31 BP 130/84 10/26/23 09:31 Pulse Ox 98 10/26/23 09:31 Oxygen Delivery Method Room Air 10/26/23 09:31 Tobacco/Smoking Status: Tobacco use Status Tobacco use date assessed 10/22/23 10/26/23 09:29 Patient Tobacco Use Status Former Tobacco user 10/26/23 09:29 e-Cigarette/Vaping Use Never Used 10/26/23 09:29 Thrive Assessment: Date of Thrive Assessment Date Thrive assessed 04/15/23 10/26/23 09:29 Office Procedures Cerumen Removal From which ear canal was the cerumen removed: left Removal: irrigation Notes: patient tolerated procedure well, no complications and ear canal clear [id number] Irrigation/Lavage Assessment and Plan Assessment & Plan (1) Acute bacterial sinusitis: Code(s): J01.90 - Acute sinusitis, unspecified; B96.89 - Other specified bacterial agents as the cause of diseases classified elsewhere (2) Impacted cerumen, bilateral: Code(s): H61.23 - Impacted cerumen, bilateral Medications: New amoxicillin-pot clavulanate 875-125 mg 1 tab PO BID 7 days 14 tabs 0RF fluticasone propionate 50 mcg/actuation administer into each nostril 1 spray intranasal BID 16 grams 0RF Patient Instructions: What Is It? Sinuses are air-filled spaces behind the bones of the upper face: between the eyes and behind the forehead, nose and cheeks. The lining of the sinuses are made up of cells with tiny hairs on their surfaces called cilia. Other cells in the lining produce mucus. The mucus traps germs and pollutants and the cilia push the mucus out through narrow sinus openings into the nose. When the sinuses become inflamed or infected, the mucus thickens and clogs the openings to one or more sinuses. Fluid builds up inside the sinuses causing increased pressure. Also bacteria can become trapped, multiply and infect the lining. This is sinusitis. Prevention There are some measures you can take to decrease your risk of developing sinusitis. If you smoke cigarettes, you should quit. The smoke can irritate nasal passageways and increase the likelihood of infection. Nasal allergies can trigger sinus infections, too. By identifying the allergen (the substance causing the allergic reaction) and avoiding it, you can help prevent sinusitis. If you have congestion from a cold or allergies, the following may help to reduce the risk of developing sinusitis: Drink lots of water. This thins nasal secretions and keeps mucous membranes moist. Use steam to soothe nasal passages. Breathe deeply while standing in a hot shower, or inhale the vapor from a basin filled with hot water while holding a towel over your head. Avoid blowing your nose with great force, which can push bacteria into the sinuses. Some doctors advise periodic home nasal washings to clear secretions. This may help prevent, and also treat, sinus infections. Treatment Many sinus infections improve without treatment. However, several medications may speed recovery and reduce the chance that an infection will become chronic. Decongestants - Congestion often triggers sinus infections, and decongestants can open the sinuses and allow them to drain. Several are available: Pseudoephedrine (Sudafed) is available without prescription, alone or in combination with other medications in multi-symptom cold and sinus remedies. Pseudoephedrine can cause insomnia, racing pulse and jitteriness. Do not use if you have high blood pressure or a heart condition. Phenylephrine (such as Sudafed PE) is an alternative mpzv-uyi-kocrtvt oral decongestant. If you take products containing oral phenylephrine, check with the pharmacist to be certain there is no interaction with other medications you take. Oxymetazoline (Afrin, Dristan and others) and phenylephrine (Giuseppe-Synephrine and others) are found in nasal sprays. They are effective and may be less likely to cause the side effects seen with pseudoephedrine. However, using a nasal decongestant for more than three days can cause worse symptoms when you stop the medication. This is called the rebound effect. Antihistamines - These medications help to relieve the symptoms of nasal allergies that lead to inflammation and infections. However, some doctors advise against using antihistamines during a sinus infection because they can cause excessive drying and slow the drainage process. Cuak-oir-cejwdtj antihistamines include diphenhydramine (Benadryl and others), chlorpheniramine (Chlor-Trimeton and others) and loratadine (Claritin). Fexofenadine (Jeanette) and cetrizine (Zyrtec) are available by prescription. Nasal steroids - Anti-inflammatory sprays such as mometasone (Nasonex) and fluticasone (Flonase), both available by prescription, reduce swelling of nasal membranes. Like antihistamines, nasal steroids can be most useful for those who have nasal allergies. Nasal steroids tend to produce less drying than antihistamines. Unlike nasal decongestants, nasal steroids can be used for prolonged periods. Saline nasal sprays - These salt-water sprays are safe to use and can provide some relief by adding moisture to the nasal passages, thinning mucus secretions and helping to flush out any bacteria that may be present. Pain relievers - Acetaminophen (Tylenol), ibuprofen (Advil, Motrin and others) or naproxen (Aleve) can be taken sinus pain. Antibiotics - Your doctor may prescribe an antibiotic if he or she suspects that a bacterial infection is causing your sinusitis. If you start taking an antibiotic, complete the entire course so that the infection is completely killed off. Not all cases of sinusitis require antibiotic treatment: Talk with your doctor about whether an antibiotic is right for you. Keep in mind that antibiotics can cause side effects, such as allergic reactions, rash and diarrhea. In addition, overusing antibiotics eventually leads to the spread of bacteria that no longer can be killed by the most commonly prescribed antibiotics. When To Call A Professional Contact a doctor if you experience facial pain along with a headache and fever, cold symptoms that last longer than seven to 10 days, or persistent green discharge from the nose. If your symptoms don't improve within a week of beginning treatment, call your doctor. Call sooner if symptoms are getting worse. If you have repeated bouts of acute sinusitis, you may have allergies or another treatable cause of sinus congestion. Ask your doctor for advice. Coding Level of Care Code Est Pt Level 3 (30734) Diagnoses Acute bacterial sinusitis J01.90; B96.89 Impacted cerumen, bilateral H61.23 CPT Codes Office Procedure - CPT: 23556-Kmr Irrigation/Lavage ([id number])
[2023-10-26 09:31] VITALS: BP 130/84; PULSE 78; O2SAT 98
== END 2023-10-26 09:45 | disposition home or self-care (01) ==
PROVIDERS: PCP Nurse Practitioner Family; Visit Provider Nurse Practitioner Family
DX: J01.90 Acute sinusitis, unspecified (principal); B96.89 Other specified bacterial agents as the cause of diseases classified elsewhere; H61.23 Impacted cerumen, bilateral
CPT/HCPCS: 69209; 99213

== ENCOUNTER 2023-12-10 14:33 | Outpatient (AMB) | payer BC, SELFPAY ==
--- NOTE | 2023-12-10 14:40 | A.OFFVIS_ITS ---
VS Expanded 12/10/23 14:42 12/10/23 14:53 Height 5 ft 0.8 in 5 ft Weight 244 lb 0.827 oz 244 lb BMI 46.4 47.6 Intake Visit Reasons: Morbid (severe) obesity/LVM Allergies hydrocodone [Vicodin] Allergy (Unknown, Verified 10/26/23 09:40) nausea and vomiting morphine [Morphine] Allergy (Unknown, Verified 10/26/23 09:40) NAUSEA, vomiting Environmental Allergy (Unknown, Uncoded 10/26/23 09:40) UNKNOWN From Vicodin Allergy (Unknown, Uncoded 10/26/23 09:40) NAUSEA Seasonal Allergies Allergy (Unknown, Uncoded 10/26/23 09:40) Unknown Nutrition Presentation Details: Pt presents for MNT for PreDM. Pt was referred by PCP Pt reports having difficulties with meal routine food frequency fruits 0-1/d ve/d dairy: 2/d fish: 0/wk starches > 25/d fried foods 0-2x/wk snacks: 3-4 /d BS Monitoring Most Recent Diabetes Results: Cholesterol 227 mg/dL (<200) H 10/19/23 HDL Cholesterol 39 mg/dL (>40) L 10/19/23 Triglycerides 199 mg/dL (<150) H 10/19/23 Creatinine 0.80 mg/dL (0.5-1.4) 10/19/23 Blood Urea Nitrogen 11 mg/dL (9-16) 10/19/23 Sodium 140 mmol/L (135-145) 10/19/23 Potassium 4.2 mmol/L (3.3-5.1) 10/19/23 Chloride 110 mmol/L (96-108) H 10/19/23 Carbon Dioxide 21 mmol/L (22-29) L 10/19/23 Calcium 9.3 mg/dL (8.4-10.2) 10/19/23 AST 23 U/L (5-31) 10/19/23 ALT 33 U/L (0-31) H 10/19/23 Total Protein 7.0 g/dL (6.5-8.0) 10/19/23 Albumin 4.1 g/dL (3.5-5.0) 10/19/23 DQL-Qgqaaqd-Cy.Jeor Equation Height: 5 ft Weight: 244 lb Resting Metabolic Rate: 1670.84 Calculated Activity Level: Sedentary Calories Needed to Maintain Weight: 2005. Diagnosis Nutrition problem #1: food nutri know defi As related to (etiology) #1: diagnosis As evidenced by (sign/symptom) #1: knowledge deficit of diet [facility] Medical History (Updated 10/22/23 @ 08:40 by Katie Felix, URBAN RENEWAL MANAGER-) Abnormal mammogram of left breast Abnormal ultrasound of breast Pilar cysts Umbilical hernia Right sided abdominal pain Obese General medical examination Scalp cyst Surgical History (Updated 10/22/23 @ 08:07 by Kayli Corona RAILROAD CAR PAINTER) H/O breast biopsy Hx of umbilical hernia repair (05/08/23) History of removal of cyst (~04/12/15) History of surgery on arm History of surgical removal of ganglion cyst Family History Mother High blood pressure Stroke Father Sarcoid Cirrhosis of liver Social History Household Members: Family Housing: House Do you presently have visiting nurse or other home services: No Patient Tobacco Use Status: Former Tobacco user Years Smoked: less than a year e-Cigarette/Vaping Use: Never Used Second Hand Smoke Exposure: No service: No Current occupational status: employed Current occupation: [employer] Current occupational exposures/hazards: No Cognitive needs: No Hearing needs: No Vision needs: Yes Female Reproductive History Menstrual Age of Menarche: 15 Assessment & Plan Assessment & Plan (1) Prediabetes: Code(s): R73.03 - Prediabetes Category: Medical Plan: Wt: 111 Kg ( 11/2023 ) Est kcal needs as per MSJ: 2000 (40% carb, 30% protein/fat) Est fluid needs as per 25-30 ml/d: 3300 Est prot per day as per 1 g/kg bw: 111 Recommend fiber intake : 8-10 g per day and gradually increase to 25-28 g per day for women and 35-38 g for men or as tolerated Recommend sodium intake per day : less than 2300 mg Educated patient on: ( R = reviewed V = verbalizes understanding N/R = needs review N/A = not applicable * Food sources of carbohydrate, adequate serving sizes and its role in various health conditions: R * Differences between complex carbohydrates a simple carbohydrates, role of fiber in diet: R * Lean protein sources of foods: R V NR * Differences between types of fats and role in diet (mono on saturated fat fatty acids, saturated fatty acids, trans fats): R V N/R * Food sources of sodium in salt and healthy modifications for heart health in kidney health: R V R/V * Vitamins and minerals: R V N/R * Healthy plate method concept: R V N/R * Physical activity: Benefits a precaution: R * Hypoglycemia protocol (rule of 15): R V N/R * Dietary prevention of Hyperglycemia: R Patient Instructions: Work on reducing sugar (in coffee, beverages, snacks) HAve yogurt with nuts for lunch or meal replacement Reduce on portion of starches to less than 45 g carb at meal and follow healthy plate method at dinner time see meal ideas as reference Coding Level of Care Code Nutr Indiv Intake (54003) Diagnoses Prediabetes R73.03 Time Spent (min) 30
[2023-12-10 14:42] VITALS: BMI 46.4
[2023-12-12 09:03] VITALS: BMI 47.6
== END 2023-12-10 15:02 | disposition home or self-care (01) ==
PROVIDERS: PCP Nurse Practitioner Family; Visit Provider Dietitian, Registered
DX: R73.03 Prediabetes (principal)

== ENCOUNTER → 2023-12-10 14:33 | Outpatient (BNVA) | payer BC, SELFPAY | PROVIDERS: PCP Nurse Practitioner Family; Visit Provider Dietitian, Registered | DX: R73.03 Prediabetes (principal); Z71.3 Dietary counseling and surveillance | CPT/HCPCS: 97802 ==

== ENCOUNTER 2023-12-19 15:25 | Outpatient (AMB) | payer BC, SELFPAY ==
[2023-12-19 15:39] VITALS: BP 136/98; PULSE 92; O2SAT 98; BMI 47.6
--- NOTE | 2023-12-19 15:39 | A.OFFVIS_ITS ---
Vital Signs 12/19/23 15:39 Height 5 ft Weight 243 lb 13.3 oz BMI 47.6 BP 136/98 H Blood Pressure Location Lt brachial Position Sitting Pulse 92 Pulse Source Pulse Oximeter Pulse Oximetry (%) 98 Oxygen Delivery Method Room Air Intake Visit Reasons: Routine colo scrn Intake Note: Na presents in office today for a scheduled colo consult. CC; Pt is currently seeing assembler billiard table and bariatrics. No other relevant GI information. Pt reports that their PCP recommended based on age. Umbilical hernia was removed a few years ago. Pt does report that their mother has had a few polyps removed but cannot recall what kind. Pt denies any other pertinent family hx. Allergies Seasonal Allergies Allergy (Mild, Verified 12/19/23 15:41) Runny Nose hydrocodone [Vicodin] Allergy (Unknown, Verified 12/19/23 15:41) nausea and vomiting morphine [Morphine] Allergy (Unknown, Verified 12/19/23 15:41) NAUSEA, vomiting acetaminophen [From Vicodin] Adverse Reaction (Mild, Verified 12/19/23 15:41) Nausea HPI HPI Routine colo scrn: Details: 48 year old? female with past medical history of morbid obesity, hyperlipidemia, hepatic steatosis, adnexal cyst, uterine fibroid is here today for pre colonoscopy screening.? Patient was sent to us by her PCP.? This is her first colonoscopy screening.? Patient denies any gastrointestinal symptoms in the past or at present.? Denies any personal or family history of gastrointestinal disease or CRC.? Patient believes that her mom had precancerous polyps on colonoscopies in the past. Denies history of difficulty with sedation or anesthesia in the past. History of umbilical hernia repair in April of [address] Soliz.? Negative for history of sleep apnea.? Denies any history of cardiac, renal, pulmonary, or hepatic disease.?? No history of infectious? diseases like hepatitis A, B, C, HIV or tuberculosis.? Patient is not on any anticoagulation [facility] Medical History Abnormal mammogram of left breast Abnormal ultrasound of breast Pilar cysts Umbilical hernia Right sided abdominal pain Obese General medical examination Scalp cyst Surgical History H/O breast biopsy Hx of umbilical hernia repair (05/08/23) History of removal of cyst (~04/12/15) History of surgery on arm History of surgical removal of ganglion cyst Family History Mother High blood pressure Stroke Father Sarcoid Cirrhosis of liver Social History Household Members: Family Housing: House Do you presently have visiting nurse or other home services: No Patient Tobacco Use Status: Former Tobacco user Years Smoked: less than a year e-Cigarette/Vaping Use: Never Used Second Hand Smoke Exposure: No service: No Current occupational status: employed Current occupation: [employer] Current occupational exposures/hazards: No Cognitive needs: No Hearing needs: No Vision needs: Yes Female Reproductive History Menstrual Age of Menarche: 15 Review of Systems Const Denies weight gain and Denies weight loss ENT Reports no additional complaints, Denies dysphagia and Denies odynophagia Card Reports no additional complaints Resp Reports no additional complaints GI Denies abdominal pain, Denies belching, Denies melena, Denies bloating, Denies change in bowel habits, Denies dysphagia, Denies excessive flatus, Denies dyspepsia, Denies heartburn, Denies diarrhea, Denies loose stools, Denies nausea, Denies odynophagia and Denies vomiting Musc Reports no additional complaints Neuro Reports no additional complaints Psych Reports no additional complaints Endo Reports no additional complaints Physical Exam Vital Signs: Last Vital Signs Pulse 92 12/19/23 15:39 BP 136/98 H 12/19/23 15:39 Pulse Ox 98 12/19/23 15:39 Oxygen Delivery Method Room Air 12/19/23 15:39 BMI result Body Mass Index 47.6 Const Other: Morbidly obese General: comfortable and no acute distress Nutritional Appearance: well nourished Orientation/consciousness: patient oriented x3 Neck Neck: Yes no lymphadenopathy Resp Effort & Inspection: normal respiratory effort, able to speak in complete sentences, no tracheal deviation and symmetric chest movement Auscultation: clear to auscultation bilaterally Cardio Rate: regular rate Rhythm: regular rhythm GI Other: Surgical scar, status post umbilical hernia repair Inspection: No distended Palpation (GI): Soft to palpation, nontender and no guarding Auscultation: normal bowel sounds General: Yes no CVA tenderness Back/Spine/Pelvis Back: no CVA tenderness Skin General skin exam: elasticity normal, turgor normal and dry skin Neuro General: patient oriented x3 Psych Appearance: grossly normal Mental Status: mental status grossly normal Assessment & Plan Assessment & Plan (1) Screen for colon cancer: Code(s): Z12.11 - Encounter for screening for malignant neoplasm of colon Category: Medical Plan Patient denies any GI, cardiac or respiratory symptoms.? Denies any issues with anesthesia in the past.? Denies any history of sleep apnea.? No history infectious diseases in the past or present.? Not on any anticoagulation therapy.? No family or personal history of colon cancer, however patient believes that her mother had precancerous polyps.? Patient denies melena, hematochezia, unintentional weight loss or ribbon like stools.? Discussed at length the pre-procedure,? prep, diet & medications as well as what to expect prior, during and after the procedure.?? Stressed the importance of good bowel prep.? Recommended the use of Vaseline or Calmoseptine OTC & baby wipes with bowel movements to promote comfort.? ?Patient verbalizes understanding and agrees to plan of care.? She was given the opportunity to ask questions and all questions answered.? We will see her after the procedure.? Medications: New polyethylene glycol 3350 (Miralax) As directed by gastro[facility]ology department at [facility] 238 grams PO ONCE 238 grams 0RF Z12.11 - Encounter for screening for malignant neoplasm of colon bisacodyl (Dulcolax (bisacodyl)) take 4 tabs at noon the day before your colonoscopy 20 mg (4 x 5 mg) PO ONCE 4 tabs 0RF 1 day Z12.11 - Encounter for screening for malignant neoplasm of colon Coding Level of Care Code New Pt Level 3 (96532) Diagnoses Screen for colon cancer Z12.11 Time Spent (min) 40 Comment 30 minutes spent with patient and additional 10 minutes spent reviewing her records
== END 2023-12-19 16:20 | disposition home or self-care (01) ==
PROVIDERS: PCP Nurse Practitioner Family; Visit Provider Nurse Practitioner Family
DX: Z01.818 Encounter for other preprocedural examination (principal); Z12.11 Encounter for screening for malignant neoplasm of colon; Z83.719 Family history of colon polyps, unspecified
CPT/HCPCS: S0285

== ENCOUNTER → 2023-12-19 15:25 | Outpatient (BNVA) | payer SELFPAY | PROVIDERS: PCP Nurse Practitioner Family; Visit Provider Nurse Practitioner Family ==

== ENCOUNTER 2024-04-23 16:12 | Outpatient (REF) | payer MEDICAID, SELFPAY ==
[2024-04-23 17:27] LABS: Estimated Average Glucose 131 mg/dL; Hemoglobin A1C 147.1445 umol/L; Hemoglobin A1c % 6.2 % (<6.0)
[2024-04-23 18:03] LABS: Alanine Aminotransferase 41 U/L (0-31); Albumin Level 4.2 g/dL (3.5-5.0); Alkaline Phosphatase 86 U/L (39-117); Anion Gap 11 (12-20); Aspartate Amino Transferase 35 U/L (5-31); Bilirubin Total 1.1 mg/dL (0.0-1.0); Blood Urea Nitrogen 10 mg/dL (9-16); Calcium 8.4 mg/dL (8.4-10.2); Carbon Dioxide 20 mmol/L (22-29); Chloride 107 mmol/L (96-108); Cholesterol 225 mg/dL (<200); Estimated Glomerular Filt Rate > 60; Glucose Fasting 91 mg/dL (60-99); HDL Cholesterol 38 mg/dL (>40); LDL Cholesterol Calculated 155 mg/dL (<100); Potassium 3.2 mmol/L (3.3-5.1); Sodium 135 mmol/L (135-145); Total Protein 7.5 g/dL (6.5-8.0); Triglycerides 164 mg/dL (<150)
== END 2024-04-23 16:13 | disposition home or self-care (01) ==
LOC: HO.LAB 16:12
PROVIDERS: PCP Nurse Practitioner Family; Visit Provider Nurse Practitioner Family
DX: Z00.00 Encounter for general adult medical examination without abnormal findings (principal); K76.0 Fatty (change of) liver, not elsewhere classified; R73.03 Prediabetes; E78.5 Hyperlipidemia, unspecified
CPT/HCPCS: 36415; 80053; 80061; 83036

== ENCOUNTER 2024-04-24 07:00 | Day surgery (SDC) | payer BC, SELFPAY ==
[2024-04-22 15:03] VITALS: BMI 47.6
--- NOTE | 2024-04-23 09:00 | P.CONAN_ITS ---
Documented by User: Pam Pereira NP 04/23/24 09:01 HPI - Anesthesia Eval Consult details Narrative: 48yo F for Colonoscopy BMI 47 PMFSH Active Problems Active Problems: All Active Problems Prediabetes (Acute) Hyperlipidemia (Acute) Encounter for general adult medical examination without abnormal findings (Acute) CRPS (complex regional pain syndrome type I) (Acute) Morbid obesity (Acute) Hepatic steatosis (Acute) Laboratory exam ordered as part of routine general medical examination (Acute) Screening for cervical cancer (Acute) Adnexal cyst (Acute) Uterine fibroid (Acute) Screen for colon cancer (Acute) Past Medical History Medical History Abnormal mammogram of left breast Abnormal ultrasound of breast Pilar cysts Umbilical hernia Right sided abdominal pain Obese General medical examination Scalp cyst Family History Family History Mother High blood pressure Stroke Father Sarcoid Cirrhosis of liver Surgical History Surgical History H/O breast biopsy Hx of umbilical hernia repair (05/08/23) History of removal of cyst (~04/12/15) History of surgery on arm History of surgical removal of ganglion cyst History of Problems with Anesthesia: No Social History Social History Household Members: Family Household Members Other:: and parents Housing: House Are you a primary healthcare account manager to a significant other at home: No Do you presently have visiting nurse or other home services: No Patient Tobacco Use Status: Former Tobacco user Years Smoked: less than a year e-Cigarette/Vaping Use: Never Used Second Hand Smoke Exposure: No Have you been hit, kicked, punched, or otherwise hurt by someone within the past year? If so, by whom?: No Are you DNR?: No Advance Directives: No Advance Directives Information Provided: Yes Recently lost weight without trying: No Nutrition Risks: No Nutritional Risk FDLMP: a few weeks ago service: No Current occupational status: employed Current occupation: [employer] Current occupational exposures/hazards: No Cognitive needs: No Hearing needs: No Vision needs: Yes Meds Allergies Allergy/AdvReac Type Severity Reaction Status Date / Time Seasonal Allergies Allergy Mild Runny Nose Verified 04/24/24 07:12 hydrocodone [Vicodin] Allergy Unknown nausea and Verified 04/24/24 07:12 vomiting morphine [Morphine] Allergy Unknown NAUSEA, Verified 04/24/24 07:12 vomiting acetaminophen [From Vicodin] AdvReac Mild Nausea Verified 04/24/24 07:12 Exam Height,Weight and Vital Signs: Height 5 ft Weight 110.6 kg Assessment and Plan Assessment Anesthesia Assessment: Chart Reviewed Final Anesthetic Review History of Problems with Anesthesia: No Documented by User: Katarina Ralph MD 04/24/24 08:09 PMFSH Past Medical History Medical History Abnormal mammogram of left breast Abnormal ultrasound of breast Pilar cysts Umbilical hernia Right sided abdominal pain Obese General medical examination Scalp cyst Family History Family History Mother High blood pressure Stroke Father Sarcoid Cirrhosis of liver Surgical History Surgical History H/O breast biopsy Hx of umbilical hernia repair (05/08/23) History of removal of cyst (~04/12/15) History of surgery on arm History of surgical removal of ganglion cyst Social History Social History Household Members: Family Household Members Other:: and parents Housing: House Are you a primary healthcare account manager to a significant other at home: No Do you presently have visiting nurse or other home services: No Patient Tobacco Use Status: Former Tobacco user Years Smoked: less than a year e-Cigarette/Vaping Use: Never Used Second Hand Smoke Exposure: No Have you been hit, kicked, punched, or otherwise hurt by someone within the past year? If so, by whom?: No Are you DNR?: No Advance Directives: No Advance Directives Information Provided: Yes Recently lost weight without trying: No Nutrition Risks: No Nutritional Risk FDLMP: a few weeks ago service: No Current occupational status: employed Current occupation: [employer] Current occupational exposures/hazards: No Cognitive needs: No Hearing needs: No Vision needs: Yes Meds Allergies Allergy/AdvReac Type Severity Reaction Status Date / Time Seasonal Allergies Allergy Mild Runny Nose Verified 04/24/24 07:12 hydrocodone [Vicodin] Allergy Unknown nausea and Verified 04/24/24 07:12 vomiting morphine [Morphine] Allergy Unknown NAUSEA, Verified 04/24/24 07:12 vomiting acetaminophen [From Vicodin] AdvReac Mild Nausea Verified 04/24/24 07:12 Exam Airway Mallampati Class: III TM Dist: >3cm Neck ROM: Full Loose/Missing/Broken Teeth: No Heart: RRR Lungs: CTA Assessment and Plan Assessment Anesthesia Assessment: Anesthesia Plan Discussed Final Anesthetic Review NPO: Yes ASA Class: III Final Preanesthetic Review: Meds/Allgs Chart Reviewed, Consent Obtained/Reviewed and Anes Risks/Benef Reviewed Patient Risk: Intermediate Procedure Risk: Low Anesthetic Plan Anesthetic Plan: MAC: Disposition: Standard PACU
[2024-04-24 07:19] VITALS: BMI 46.1
[2024-04-24] MEDS: Lactated Ringers 1,000 ML 100 ML IVCONT (07:27)
[2024-04-24 07:40] VITALS: BP 156/96; PULSE 86; RESP 18; TEMP 36.7; O2SAT 96
--- NOTE | 2024-04-24 07:50 | MHC.SHP ---
Pre-Procedural Eval Section A - 24 Hr Update-Section A only Date of Service: 04/24/24 Section B - Complete if H&P > 30 days Chief Complaint: Encounter for screening for malignant neoplasm of Details of Present Illness: Abnormal mammogram of left breast Abnormal ultrasound of breast Pilar cysts Umbilical hernia Right sided abdominal pain Obese General medical examination Scalp cyst Surgical History H/O breast biopsy Hx of umbilical hernia repair (05/08/23) History of removal of cyst (~04/12/15) History of surgery on arm History of surgical removal of ganglion cyst Present Medications: see Short Stay Collaborative assessment Allergies: Allergies Allergy/AdvReac Type Severity Reaction Status Date / Time Seasonal Allergies Allergy Mild Runny Nose Verified 04/24/24 07:12 hydrocodone [Vicodin] Allergy Unknown nausea and Verified 04/24/24 07:12 vomiting morphine [Morphine] Allergy Unknown NAUSEA, Verified 04/24/24 07:12 vomiting acetaminophen [From Vicodin] AdvReac Mild Nausea Verified 04/24/24 07:12 Review of Systems Review of Systems Comment: 10 point ROS negative Exam Exam Comment: Gen appear: No acute distress HEENT: no icterus Chest: No overt resp distress Abd: soft, nontender, nondistended Psych: Stable affect, answering questions appropriately Neuro: A/Ox3 noted to move all extremities spontaneously Ext: no peripheral edema Plan Diagnosis/Plan: Unchanged I have reviewed the history and physical and performed a pertinent physical examination on my patient. No changes have occurred unless specified. Time Spent With Patient Time: Total time managing care of this patient today ____ minutes.
[2024-04-24 08:21] LABS: UPreg QC Valid YES; Urine Pregnancy NEGATIVE (NEGATIVE)
[2024-04-24 08:56] VITALS: BP 116/83; PULSE 82; RESP 18; TEMP 37.4; O2SAT 99
--- NOTE | 2024-04-24 09:02 | P.OPN-COLO_ITS ---
Colonoscopy Operative Note Operative Note Date of Service: 04/24/24 Narrative: Procedure: Colonoscopy Indication: Screening Endoscopist: Prachi Diana MD Anesthesia Provider: Dr Keerthi Ralph Anesthesia type: MAC Instrument: Olympus [id number] Consent: Indication, risks vs benefits, and alternatives were discussed with the patient who gave written informed consent to proceed. EKG, pulse, pulse oximetry and blood pressure were monitored throughout the procedure. Please see anesthesia flowsheet. Procedure: The patient was brought to the procedure room and placed in the left lateral decubitus position. IV medications were administered by the anesthesia provider in attendance. A digital rectal exam was performed which was abnormal due to finding of hemorrhoids. A distal attachment cap was affixed to the tip of the colonoscope which was then inserted through the anus and advanced through the colon to the cecum at 75 cm,and terminal ileum. Appendiceal orifice and ileocecal valve were identified. Mucosa was carefully examined under high definition white light as the instrument was slowly withdrawn in a retrograde panoramic fashion. Retroflexion was performed in rectum. The procedure was not difficult. There were no immediate obvious complications. The quality of the prep was BBPS: 2+3+3 = adequate Withdrawal time 8 minutes. Limitations: No limitations. Findings: Mucosa: Normal to cecum and terminal ileum. Protruding lesions: * Medium internal hemorrhoids [without] stigmata of recent bleeding. Impression: 1. Normal colon mucosa 2. External and internal hemorrhoids Recommendations: - repeat colonoscopy recommended in 10 years for asymptomatic colorectal cancer screening. - p.r.n. follow-up in GI office
[2024-04-24 09:11] VITALS: BP 141/84; PULSE 76; RESP 16; TEMP 36.6; O2SAT 98
== END 2024-04-24 09:43 | disposition home or self-care (01) ==
PROVIDERS: Nurse Practitioner; PCP Nurse Practitioner Family; Visit Provider Internal Medicine
PROC: 0DJD8ZZ Inspection of Lower Intestinal Tract, Via Natural or Artificial Opening Endoscopic (ICD-10-PCS; CPT 45378; principal; 2024-04-24 08:30)
DX: Z12.11 Encounter for screening for malignant neoplasm of colon (principal); K64.8 Other hemorrhoids; K64.4 Residual hemorrhoidal skin tags; K76.0 Fatty (change of) liver, not elsewhere classified; E78.5 Hyperlipidemia, unspecified; E66.01 Morbid (severe) obesity due to excess calories; Z68.42 Body mass index [BMI] 45.0-49.9, adult; D25.9 Leiomyoma of uterus, unspecified; Z88.5 Allergy status to narcotic agent; Z98.890 Other specified postprocedural states; Z87.891 Personal history of nicotine dependence
CPT/HCPCS: 45378; 81025; J2003; J2704

== ENCOUNTER 2024-04-25 13:17 | Outpatient (AMB) | payer BC, SELFPAY ==
--- NOTE | 2024-04-25 13:22 | MHC.PC.OV ---
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 Required: No Allergies Seasonal Allergies Allergy (Mild, Verified 04/25/24 13:40) Runny Nose hydrocodone [Vicodin] Allergy (Unknown, Verified 04/25/24 13:40) nausea and vomiting morphine [Morphine] Allergy (Unknown, Verified 04/25/24 13:40) NAUSEA, vomiting acetaminophen [From Vicodin] Adverse Reaction (Mild, Verified 04/25/24 13:40) Nausea Medication List - Last Reconciled 04/25/24 by BENTLEY RodriguezP- fluticasone propionate 50 mcg/actuation 1 spray intranasal BID Tobacco use date assessed: 04/25/24 Dental Screening Dental Screen Date: 06/25/23 HPI HPI Comments History of Present Illness Details 48-year-old female with obesity, umbilical hernia containing fat and omentum, uterine fibroid, bilat adnexal cysts, hepatic steatosis, CRPS, hyperlipidemia, prediabetes s/p repair of large umbilical hernia with mesh along with partial omentectomy 05/08/2023 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 07/2023 Routine screening mammography is recommended in 1 year. Colon 03/2024 @ [facility] Dr Diana repeat colonoscopy recommended in 10 years for asymptomatic colorectal cancer screening. Dexa - still getting periods Vaccines: Tdap 2018 Pap - overdue, this appt was cancelled, she needs to r/s. Will f/u with office on this. The patient is a 48-year-old female presenting for routine follow-up management of her chronic conditions, including prediabetes, hyperlipidemia, Complex Regional Pain Syndrome (CRPS), and hepatic steatosis. Her prediabetes was noted to have an HbA1c increase from 6.1% to 6.2% since the last assessment. She reports dietary changes, including reducing red meat and fried foods, but expresses concern about her cholesterol levels not improving. She previously saw a batt machine operator through the endocrinology team, but found the consultation unsatisfactory due to conflicting advice about carbohydrate intake. Her fasting blood glucose was better, but this did not reflect in her HbA1c levels. The patient reports a history of drinking alcohol occasionally, but not enough to contribute significantly to hepatic issues. For CRPS, she uses Motrin more frequently due to increased activity levels related to work. Her liver enzyme levels, particularly AST and ALT, have been slightly elevated since September, further monitoring for potential progression of NAFLD is suggested. She seeks further nutritional guidance due to prior unsatisfactory experiences. 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 No apparent distress Eyes: Sclera and conjunctiva clear bilaterally Cardiovascular: Regular rate and rhythm BP recheck x 2 shows elevated bp Respiratory: Clear to auscultation bilaterally No edema BLE, + PP Mood and affect appropriate Results Labs from 04/23/2024 show a potassium of 3.2, otherwise normal electrolytes, normal renal function, fasting glucose improved at 91, hemoglobin A1c worse at 6.2%, it was 6.1 back in September, normal calcium, elevated total bili, elevated LFTs AST 35 ALT 41 this is an increase from the last drawn September, cholesterol profile remains outside of goal with a total cholesterol of 225, LDL 155, HDL 38 and triglycerides 164, vitamin-D was not repeated this lab draw - Tests and Diagnostics: - Colonoscopy: Results clean with a repeat suggested in 10 years Discussion Notes I discussed with the patient her current conditions of prediabetes, hyperlipidemia, CRPS, and hepatic steatosis. I explained the slight increase in her HbA1c to 6.2% and discussed the importance of dietary management and regular monitoring. We talked about her unsatisfactory experience with the batt machine operator and I agreed to refer her to another batt machine operator within our network. I informed her of the implications of her elevated liver enzymes in conjunction with hyperlipidemia and reiterated the need to adhere to dietary recommendations. We discussed the concept of meal replacement shakes where appropriate. The patient agreed to return for a blood pressure recheck in two weeks and understood the importance of potential medication if hypertension is confirmed. I suggested a flu shot, given her work environment, which involves frequent contact with children and potential viral exposure. I advised her on monitoring her symptoms and laboratory markers, committing to follow up in six months with repeat fasting labs. Patient Instructions - Follow new dietary plan recommendations once seen by a new batt machine operator. - Monitor blood pressure regularly at home. - Continue reducing red meat and fried food intake. - Use meal replacement shakes judiciously, ensuring they are not high in sugars. - Return for a blood pressure check with Nurse Gabby in two weeks. - Follow up in six months for repeat fasting labs for CPE - Receive a flu shot today. Plan - Prediabetes: Plan for dietary adjustments and continuous monitoring of HbA1c levels. Encouraged healthy eating patterns with the help of a new batt machine operator. - Hyperlipidemia: Continue dietary management, particularly reduction in red meat and processed foods. Monitor lipid panel in subsequent check-ups. - CRPS: Recommend regular use of NSAIDs like Motrin for pain management, assessing frequency and assessing alternative pain management strategies as needed. - Non-alcoholic Fatty Liver Disease NAFLD): Continue monitoring liver enzyme levels and reinforce dietary recommendations to mitigate progression. Alcohol consumption should be limited further. - Hepatic Steatosis: Watchful waiting with periodic testing and lifestyle alterations focusing on weight management and balanced diet. Patient was informed and verbally consented to the use of an ambient scribe for clinic note documentation during this visit. Total time spent caring for the patient today was 45 minutes. This includes time spent before the visit reviewing the chart, time spent during the visit, and time spent after the visit on documentation, reviewing laboratory results, diagnostic imaging, medications, performing a medically necessary evaluation, counseling on diagnoses, care coordination, ordering appropriate tests, ordering appropriate medications, review of tests performed by other providers, reporting test results with the patient, communication with other healthcare providers. [facility] Medical History Abnormal mammogram of left breast Abnormal ultrasound of breast Pilar cysts Umbilical hernia Right sided abdominal pain Obese General medical examination Scalp cyst Surgical History H/O breast biopsy Hx of umbilical hernia repair (05/08/23) History of removal of cyst (~04/12/15) History of surgery on arm History of surgical removal of ganglion cyst Family History Mother High blood pressure Stroke Father Sarcoid Cirrhosis of liver Social History Household Members: Family Household Members Other:: and parents Housing: House Are you a primary technical healthcare consultant to a significant other at home: No Do you presently have visiting nurse or other home services: No Patient Tobacco Use Status: Former Tobacco user Years Smoked: less than a year e-Cigarette/Vaping Use: Never Used Second Hand Smoke Exposure: No service: No Current occupational status: employed Current occupation: [employer] Current occupational exposures/hazards: No Cognitive needs: No Hearing needs: No Vision needs: Yes Female Reproductive History Menstrual Age of Menarche: 15 Questionnaire PHQ-9 Over the last 2 weeks, how often have you been bothered by any of the following problems? 1. Little interest or pleasure in doing things: not at all 2. Feeling down, depressed, or hopeless: not at all 3. Trouble falling or staying asleep, or sleeping too much: several days 4. Feeling tired or having little energy: not at all 5. Poor appetite or overeating: not at all 6. Feeling bad about yourself - or that you are a failure or have let yourself or your family down: not at all 7. Trouble concentrating on things, such as reading the newspaper or watching television: several days 8. Moving or speaking so slowly that other people could have noticed. Or the opposite - being so fidgety or restless that you have been moving around a lot more than usual: not at all 9. Thoughts that you would be better off or of hurting yourself in some way: not at all Total score: 2 Depression Screening Interpretation: Negative Depression Screening Done: Yes 02474 - PHQ-9 Billing: Yes Source: Developed by Drs. Manjit Velásquez, Cathleen Stokes, Azam Allen and colleagues, with an educational anneliese from [employer]. Thrive Questionnaire Date Thrive assessed: 04/25/24 I am a: Patient What is your living situation today?: I have a steady place to live Within the past 12 months, did the food you bought not last and you didn't have the money to get more?: Never true Within the past 12 months, did you worry whether your food would run out before you got money to buy more?: Never true Do you have trouble paying for medicines?: No Do you have trouble getting transportation to medical appointments?: No Do you have trouble paying your heating and electricity bill?: No Do you have trouble taking care of your child, family member or friend?: No Do you have trouble with day-to-day activities such as bathing, preparing meals, shopping, managing finances, etc.?: No Are you currently unemployed and looking for a job?: No Are you interested in more education?: No Please select the resources that you would like help with: None Currently or been in a relationship where the following occur: I choose not to answer THRIVE Score: 0 AUDIT C Alcohol Use Questionnaire (AUDIT-C) 1. How often do you have a drink containing alcohol?: Never 2. How many drinks containing alcohol do you have on a typical day when you are drinking?: 1 or 2 3. How often do you have six or more drinks on one occasion?: Never Total Score: 0 Score Reviewed/Action Taken: Yes HEMA-7 AMB Questionnaire HEMA-7 Date HEMA - 7 assessed: 04/25/24 Feeling nervous, anxious, or on edge: 0 = Not at all Not being able to stop or control worryin = Not at all Worrying too much about different things: 0 = Not at all Trouble relaxin = Not at all Being so restless that it is hard to sit still: 0 = Not at all Becoming easily annoyed or irritable: 0 = Not at all Feeling afraid as if something awful might happen: 0 = Not at all Total HEMA-7 score (0-4 normal; 5-9 mild; 10-14 moderate; 15-21 severe): 0 Source: Developed by Drs. Manjit Velásquez, Cathleen Stokes, Azam Allen and colleagues, with an educational anneliese from [employer]. HEMA-7 Assessment Billing HEMA-7 Assessment Tool: HEMA-7 Assessment 42506 Physical exam (Primary Care) Vital Signs: Last Vital Signs Temp 96.9 F 04/25/24 13:27 Pulse 88 04/25/24 14:00 Resp 13 04/25/24 13:27 BP 162/100 H 04/25/24 14:00 Pulse Ox 97 04/25/24 13:27 Oxygen Delivery Method Room Air 04/25/24 13:27 BMI result Body Mass Index 46.3 BMI Assessment/Plan discussion: High BMI High, discussed plan: lifestyle Tobacco/Smoking Status: Tobacco use Status Tobacco use date assessed 04/25/24 04/25/24 13:29 Patient Tobacco Use Status Former Tobacco user 04/25/24 13:24 e-Cigarette/Vaping Use Never Used 04/25/24 13:24 PHQ-9: PHQ-9 Score PHQ-9: Total score 2 04/25/24 15:54 Depression Screening Interpretation: Negative Thrive Assessment: Date of Thrive Assessment Date Thrive assessed 04/25/24 04/25/24 13:24 Currently or been in a relationship where the following occur: I choose not to answer Office Procedures Flu Questionnaire Does the patient have a severe egg allergy?: No Does the patient have severe life threatening allergies?: No Does the patient have a fever or illness today?: No Has the patient ever had Guillain-[place] Syndrome?: No Has the patient ever had any past reaction to a flu shot?: No Office Procedure Misc Office Procedure Billing Code: AMB Procedure Billing Code Immunizations Fluarix Triv 1176-5963 (PF) 45 mcg (15 mcg x 3)/0.5 mL IM syringe Performing Provider: WEI Rodriguez Performing Location: [facility] Administered by: Gillian Dubon RN on 04/25/24 14:23 Dose Route Admin Location Dispensed Lot Number Expiration Date [facility] Afloat Cryptologic Manager 0.5 mL IM Left Deltoid 0.5 mL [id number] 09/22/24 [id number] [employer] VIS Given Date VIS Provided VIS Publication Date 04/25/24 Single Vaccine 20 Eligibility Eligibility Date Funding Source Not [facility] Eligible 04/25/24 Private Coding Level of Care Code Est Pt Level 5 (26168) Complex EM visit Add On G2211 Diagnoses Prediabetes R73.03 Mixed hyperlipidemia E78.2 Hyperlipidemia type: mixed hyperlipidemia Hepatic steatosis K76.0 Influenza vaccination administered at current visit Z23 Elevated blood pressure reading without diagnosis of hypertension R03.0 Morbid obesity with BMI of 45.0-49.9, adult E66.01; Z68.42 Complex regional pain syndrome type 1 of right upper extremity G90.511 Complex regional pain syndrome affected site: upper extremity Laterality: right Morbid obesity E66.01 CPT Codes Office Procedure - Office Procedure Billing Code: AMB Procedure Billing Code ([id number]) Additional Codes HEMA-7 Assessment Billing - HEMA-7 Assessment Tool: HEMA-7 Assessment 82540 ([id number]) PHQ-9 - 68760 - PHQ-9 Billing: Yes ([id number]) Assessment & Plan Assessment & Plan (1) Prediabetes: Code(s): R73.03 - Prediabetes Category: Medical (2) Hyperlipidemia: Code(s): E78.5 - Hyperlipidemia, unspecified Category: Medical Qualifiers: Hyperlipidemia type: mixed hyperlipidemia Qualified Code(s): E78.2 - Mixed hyperlipidemia (3) Hepatic steatosis: Comment: noted of CT of abd and [place] of abd 03/2023, Code(s): K76.0 - Fatty (change of) liver, not elsewhere classified Category: Medical (4) Influenza vaccination administered at current visit: Code(s): Z23 - Encounter for immunization Category: Medical (5) Elevated blood pressure reading without diagnosis of hypertension: Code(s): R03.0 - Elevated blood-pressure reading, without diagnosis of hypertension Category: Medical (6) Morbid obesity with BMI of 45.0-49.9, adult: Code(s): E66.01 - Morbid (severe) obesity due to excess calories; Z68.42 - Body mass index [BMI] 45.0-49.9, adult Category: Medical (7) CRPS (complex regional pain syndrome type I): Comment: affecting upper and lower ext on R side. Was on methadone and oxy in the past Had side effects Managed quite well w/ PRN NSAIDS OTC, advised to continue Code(s): G90.50 - Complex regional pain syndrome I, unspecified Category: Medical Qualifiers: Complex regional pain syndrome affected site: upper extremity Laterality: right Qualified Code(s): G90.511 - Complex regional pain syndrome I of right upper limb (8) Morbid obesity: Comment: BMI > 46 Code(s): E66.01 - Morbid (severe) obesity due to excess calories Category: Medical Plan . Orders: Orders Lipid Panel 6 Months E66.01 - Morbid (severe) obesity due to excess calories, E78.2 - Mixed hyperlipidemia, K76.0 - Fatty (change of) liver, not elsewhere classified, R73.03 - Prediabetes, Z68.42 - Body mass index [BMI] 45.0-49.9, adult Comprehensive [place]. Panel Fast 6 Months E66.01 - Morbid (severe) obesity due to excess calories, E78.2 - Mixed hyperlipidemia, K76.0 - Fatty (change of) liver, not elsewhere classified, R73.03 - Prediabetes, Z68.42 - Body mass index [BMI] 45.0-49.9, adult Vitamin D 25-OH Total 6 Months E66.01 - Morbid (severe) obesity due to excess calories, E78.2 - Mixed hyperlipidemia, K76.0 - Fatty (change of) liver, not elsewhere classified, R73.03 - Prediabetes, Z68.42 - Body mass index [BMI] 45.0-49.9, adult Microalbumin, Random (w Creat) 6 Months E66.01 - Morbid (severe) obesity due to excess calories, E78.2 - Mixed hyperlipidemia, K76.0 - Fatty (change of) liver, not elsewhere classified, R73.03 - Prediabetes, Z68.42 - Body mass index [BMI] 45.0-49.9, adult TSH reflex Free T4 6 Months E66.01 - Morbid (severe) obesity due to excess calories, E78.2 - Mixed hyperlipidemia, K76.0 - Fatty (change of) liver, not elsewhere classified, R73.03 - Prediabetes, Z68.42 - Body mass index [BMI] 45.0-49.9, adult Hemoglobin A1c 6 Months E66.01 - Morbid (severe) obesity due to excess calories, E78.2 - Mixed hyperlipidemia, K76.0 - Fatty (change of) liver, not elsewhere classified, R73.03 - Prediabetes, Z68.42 - Body mass index [BMI] 45.0-49.9, adult Influenza [id number] Immunization Today Z23 - Encounter for immunization Referrals Nutrition/Dietitian Referral E66.01 - Morbid (severe) obesity due to excess calories, E78.2 - Mixed hyperlipidemia, K76.0 - Fatty (change of) liver, not elsewhere classified, R73.03 - Prediabetes, Z68.42 - Body mass index [BMI] 45.0-49.9, adult
[2024-04-25 13:27] VITALS: BP 144/82; PULSE 101; RESP 13; TEMP 36.1; O2SAT 97; BMI 46.3
[2024-04-25 14:00] VITALS: BP 160/100; BP 162/100; PULSE 88
== END 2024-04-25 14:22 | disposition home or self-care (01) ==
PROVIDERS: PCP Nurse Practitioner Family; Visit Provider Nurse Practitioner Family
DX: R73.03 Prediabetes (principal); E66.01 Morbid (severe) obesity due to excess calories; Z68.42 Body mass index [BMI] 45.0-49.9, adult; E78.2 Mixed hyperlipidemia; K76.0 Fatty (change of) liver, not elsewhere classified; Z23 Encounter for immunization; R03.0 Elevated blood-pressure reading, without diagnosis of hypertension; G90.511 Complex regional pain syndrome I of right upper limb

== ENCOUNTER → 2024-04-25 13:17 | Outpatient (BNVA) | payer BC, SELFPAY | PROVIDERS: PCP Nurse Practitioner Family; Visit Provider Nurse Practitioner Family | DX: R73.03 Prediabetes (principal); E78.2 Mixed hyperlipidemia; K76.0 Fatty (change of) liver, not elsewhere classified; Z23 Encounter for immunization; R03.0 Elevated blood-pressure reading, without diagnosis of hypertension; E66.01 Morbid (severe) obesity due to excess calories; Z68.42 Body mass index [BMI] 45.0-49.9, adult; G90.511 Complex regional pain syndrome I of right upper limb | CPT/HCPCS: 90471; 90656; 96127 ==

== ENCOUNTER → 2024-05-15 09:49 | Outpatient (BNVA) | payer BC, SELFPAY | PROVIDERS: PCP Nurse Practitioner Family ==

== ENCOUNTER → 2024-05-29 09:03 | Outpatient (BNVA) | payer BC, SELFPAY | PROVIDERS: PCP Nurse Practitioner Family ==

== ENCOUNTER → 2024-06-09 09:10 | Outpatient (BNVA) | payer BC, SELFPAY | PROVIDERS: PCP Nurse Practitioner Family; Visit Provider Dietitian, Registered ==

== ENCOUNTER → 2024-07-07 09:44 | Outpatient (BNVA) | payer BC, SELFPAY | PROVIDERS: PCP Nurse Practitioner Family; Visit Provider Dietitian, Registered ==

== ENCOUNTER 2024-08-04 14:27 | Outpatient (AMB) | payer BC, SELFPAY ==
--- NOTE | 2024-08-04 14:35 | AM.OFFWIN_ITS ---
Intake Vital Signs 08/04/24 14:44 Weight 240 lb BP 112/80 Blood Pressure Location Lt brachial Position Sitting Pulse 100 Pulse Source Pulse Oximeter Temp 98.5 F Temp Source Oral Pulse Oximetry (%) 98 Oxygen Delivery Method Room Air Intake Visit Reasons: EP cough, SOB Intake Note: Patient here for cough, SOB and wheezing that has been present for about 1 week. Patient Tobacco Use Status: Former Tobacco user Allergies Seasonal Allergies Allergy (Mild, Verified 08/04/24 14:43) Runny Nose hydrocodone [Vicodin] Allergy (Unknown, Verified 08/04/24 14:43) nausea and vomiting morphine [Morphine] Allergy (Unknown, Verified 08/04/24 14:43) NAUSEA, vomiting acetaminophen [From Vicodin] Adverse Reaction (Mild, Verified 08/04/24 14:43) Nausea Do you need a note to return to daycare/school/sports/work: Yes HPI HPI Comments History of Present Illness Details History - The patient is a 48-year-old female pr esenting with a persistent cough. - The cough began around [facility], [facility] with allergen exposure, leading to increased severity over the past week. - The patient experiences nocturnal coug h interfering with sleep despite medication usage. - Wheezing, shortness of breath, and rad iating pain are noted as associated symptoms. - Past medical history reveals a sinusit is episode, with sinus pain and headaches persisting, left ear pain - The patient does not smoke, vape and h as no history of asthma or COPD. - Denies fevers Physical Exam General: Cooperative, healthy appearing, comfortable and no acute distress Orientation/consciousness: Patient oriented x3 Limitations: No limitations Head: Normal to inspection Ears: Hearing grossly normal bilaterally, external ears normal and TM's normal bilaterally Nose: Normal external nose present, Normal nares present and No nasal discharge present Face and sinus: Normal facial exam and Yes frontal sinuses tender Mouth: Normal oral and palatal mucosa present and moist mucous membranes Throat: Yes tonsils normal, Yes uvula midline. Posterior oropharynx erythema with cobblestoning, no exudate Eyes: Appearance normal, both eyes and all related structures Neck: Normal visual inspection, but tender Respiratory: slight exp wheeze, tight. Normal respiratory effort, able to speak in complete sentences, Actively coughing, no respiratory distress, not tachypnei c, no tripod positioning and no use of accessory muscles. Cardiovascular: Regular rate and rhythm. Normal S1 and S2 Skin: No rashes or lesions noted Neuro: Patient oriented x3 Extremities: Normal to inspection and Yes no clubbing, cyanosis or edema PFSH Medical History Abnormal mammogram of left breast Abnormal ultrasound of breast Pilar cysts Umbilical hernia Right sided abdominal pain Obese General medical examination Scalp cyst Surgical History H/O breast biopsy Hx of umbilical hernia repair (05/08/23) History of removal of cyst (~04/12/15) History of surgery on arm History of surgical removal of ganglion cyst Family History Mother High blood pressure Stroke Father Sarcoid Cirrhosis of liver Social History Household Members: Family Household Members Other:: and parents Housing: House Are you a primary medicare coordinator to a significant other at home: No Do you presently have visiting nurse or other home services: No Patient Tobacco Use Status: Former Tobacco user Years Smoked: less than a year e-Cigarette/Vaping Use: Never Used Second Hand Smoke Exposure: No service: No Current occupational status: employed Current occupation: [employer] Current occupational exposures/hazards: No Cognitive needs: No Hearing needs: No Vision needs: Yes Female Reproductive History Menstrual Age of Menarche: 15 Review of Systems Const All systems reviewed & are unremarkable except as noted in HPI and below Physical Exam Vital Signs: Last Vital Signs Temp 98.5 F 08/04/24 14:44 Pulse 100 08/04/24 14:44 BP 112/80 08/04/24 14:44 Pulse Ox 98 08/04/24 14:44 Oxygen Delivery Method Room Air 08/04/24 14:44 Assessment & Plan Assessment & Plan (1) Seasonal allergies: Code(s): J30.2 - Other seasonal allergic rhinitis Plan: VSS, pt well appearing, PE remarkable for frontal sinus tenderness and exp wheezes/tight lung sounds. The patient?s acute bronchitis and related symptoms, including cough and wheezing, will be managed with Prednisone 40 mg daily for five days, along with Tessalon Perles to alleviate nighttime coughing. The administration of an inhaler with spacer will aid in reducing bronchospasms. There is no current evidence of pneumonia; however, the patient should continue to monitor her symptoms and seek further evaluation if necessary. Given the satisfactory oxygen levels and supportive measures, immediate drastic interventions are not required at this time. Patient education on medication effects and appropriate use of the inhaler was provided, ensuring effective management of her respiratory symptoms going forward. Patient was informed and verbally consented to the use of an ambient scribe for clinic note documentation during this visit (2) Lower respiratory infection (e.g., bronchitis, pneumonia, pneumonitis, pulmonitis): Code(s): J22 - Unspecified acute lower respiratory infection Plan: as above Medications: New benzonatate 200 mg PO BEDTIME PRN 10 caps 0RF cough inhalational spacing device (BreatheRite MDI Spacer) As directed 1 ea 0RF prednisone 40 mg (2 x 20 mg) PO QAM 10 tabs 0RF albuterol sulfate 90 mcg/actuation 2 puffs inhalation Q6H PRN 8.5 grams 0RF shortness of breath or wheezing or cough Coding Level of Care Code Est Pt Level 3 (83529) Diagnoses Seasonal allergies J30.2 Lower respiratory infection (e.g., bronchitis, pneumonia, pneumonitis, pulmonitis) J22
[2024-08-04 14:44] VITALS: BP 112/80; PULSE 100; TEMP 36.9; O2SAT 98
== END 2024-08-04 15:33 | disposition home or self-care (01) ==
PROVIDERS: PCP Nurse Practitioner Family; Visit Provider Physician Assistant
DX: J30.2 Other seasonal allergic rhinitis (principal); J22 Unspecified acute lower respiratory infection

== ENCOUNTER → 2024-08-04 14:27 | Outpatient (BNVA) | payer BC, SELFPAY | PROVIDERS: PCP Nurse Practitioner Family; Visit Provider Physician Assistant ==